=== PATIENT | male | born 1960 | race Caucasian/White ===

== ENCOUNTER 2021-04-16 08:47 | Emergency (ER) | payer OTHER, SELFPAY ==
[2021-04-16 08:48] VITALS: BP 142/84; PULSE 85; RESP 22; TEMP 36.6; O2SAT 99; BMI 31.8
--- NOTE | 2021-04-16 09:20 | EKG12_ITS ---
Test Reason : [facility] SVT Blood Pressure : / mmHG Vent. Rate : 084 BPM Atrial Rate : 084 BPM P-R Int : 156 ms QRS Dur : 088 ms QT Int : 362 ms P-R-T Axes : 054 007 061 degrees QTc Int : 427 ms Normal sinus rhythm Low voltage QRS (Limb Leads) Borderline ECG Confirmed by KAELA PURDY, CESAR ([id number]), brands editor ZACHARY ROCHA ([id number]) on 04/19/2021 11:40:33 AM Referred By: GISSELL Confirmed By:CESAR SHERWOOD MD
--- NOTE | 2021-04-16 09:25 | RAD_ITS ---
STUDY: X-RAY CHEST REASON FOR EXAM: Male, 61 years old. Chest pain TECHNIQUE: Single AP portable view of the chest. COMPARISON: None. FINDINGS: EKG electrodes are seen. Hyperinflation. The lungs are clear. There is no demonstrated pleural abnormality. Normal size heart. Normal mediastinum and juanis. Normal visualized pulmonary arteries. There is atherosclerotic tortuosity of the aortic arch and descending thoracic aorta. Normal visualized thoracic spine. Normal visualized ribs, clavicles, and shoulders. There is no demonstrated abnormality of the visualized soft tissue structures of the upper abdomen. RAD/Chest 1 View (Portable) IMPRESSION: Hyperinflation. The lungs are clear. Electronically Signed: Liu Clayton MD at 9:49 EDT , Service support ,
[2021-04-16 09:30] LABS: Absolute Lymphocyte Count 1.65 X10^3/uL (0.83-4.51); Absolute Neutrophil Count 3.6 X10^3/uL (2.0-7.7); Basophil# 0.03 X10^3/uL; Basophil% 0.5 % (0-1); Eosinophil# 0.26 X10^3/uL; Eosinophils% 4.3 % (0-5); Hematocrit 49.4 % (40-54); Hemoglobin 16.3 g/dL (13.0-16.5); Lymphocyte # 1.65 X10^3/ul (0.83-4.51); Lymphocyte % 27.5 % (19-41); Mean Corpuscular Hgb 30.4 pg (27.0-32.0); Mean Platelet Vol. 11.1 fl (6.2-12.0); Monocyte# 0.48 X10^3/uL; NRBC Flagged by Analyzer 0 % (0-5); Neutrophil # 3.55 X10^3/uL (2.7-7.7); Neutrophil % 59.2 % (47-70); Platelet Count 134 K/mm3 (150-450); RBC Distribution Width CV 12.9 % (11.6-14.6); RBC Distribution Width SD 43.8 fl (35.1-43.9); Red Blood Count 5.37 M/mm3 (4.6-6.2)
--- NOTE | 2021-04-16 09:32 | EDS_ITS ---
HPI History of Present Illness Chief Complaint: Palpitations Informant: patient and EMS Narrative Narrative: Patient is a 61-year-old male with history of bipolar disorder presenting with palpitations. Patient states around 720 this morning he was picking up delivery box not as any feeling his heart was racing. He states he felt weird. He checked his pulse at home on his home pulse oximeter and saw that it was between 150 and 167. It was worse when he stood up. He [place] associated chest pain. He called EMS and was brought to the emergency room. EMS did an EKG concerning for SVT and gave him 6 mg of IV adenosine and then 12 mg with conversion to NSR. Patient resolution of his symptoms after this. Patient currently has no complaints. He states he has otherwise been feeling well. He denies any history of arrhythmia or any cardiac history but does note that he had an ultrasound of his heart 10 years ago that said one of his valves did work well. He does not remember any further details. [facility] Medical History Bipolar 1 disorder Allergy/AdvReac Type Severity Reaction Status Date / Time No Known Allergies Allergy Verified 04/16/21 08:48 Social History Smoking Status: Former smoker ROS ROS ED Constitutional Constitutional ED: Denies fatigue or weakness Eyes Eyes: Denies blurry vision ENT ENT ED: Denies sore throat Cardiovascular Cardiovascular: Reports palpitations and racing heartbeat; Denies chest pain Respiratory/Chest Respiratory/Chest: Denies cough, dyspnea or dyspnea on exertion Gastrointestinal Gastrointestinal: Denies abdominal pain, nausea or vomiting Genitourinary Genitourinary ED: Denies decreased urination or dysuria Musculoskeletal Musculoskeletal: Denies extremity pain Integumentary Denies new lesions or rash Neurologic Neurologic: Denies paresthesias or weakness Psychiatric Psychiatric: Denies anxiety or depression Hematologic/Lymphatic Hematologic/Lymphatic: Denies easy bleeding or easy bruising EXAM Physical Exam Const Vital Signs: 04/16/21 08:48 04/16/21 09:42 04/16/21 10:13 Temperature 98 F Temperature Source Temporal Pulse Rate 85 91 Respiratory Rate 22 H 22 H Respiratory Effort Normal Non-Labored Respiratory Pattern Normal Blood Pressure 142/84 H 114/87 H Blood Pressure Mean 103 Pulse Ox 99 97 98 Oxygen Delivery Method Room Air Room Air Positive well nourished and well developed General Appearance ED: well developed HEENT Reports moist mucous membranes normocephalic Mouth ED: Yes moist mucous membranes normal Eyes PERRL and EOMs intact bilaterally General Eye ED: Yes normal appearance of both eyes Pupil: PERRL Neck supple and no JVD Lymph Lymphatic: no lymphadenopathy noted Chest Wall inspection of chest normal and palpation of chest normal Resp normal respiratory effort, normal air movement and clear to auscultation bilaterally Cardio regular rate and regular rhythm Peripheral Pulses: pulses 2+ throughout GI normal to inspection, nondistended, normoactive bowel sounds, non-tender and non-distended Back/Spine no CVA tenderness and normal to inspection Extremity normal to inspection and full ROM Neuro oriented x3, moves all extremities and no focal motor deficits Sensorium / Orientation: alert Motor Exam: Negative for general weakness Psych mental status grossly normal and thought process normal Skin no rashes or lesions noted and no petechiae MDM MDM MDM Narrative Medical decision making narrative: Patient evaluated after episode of palpitations which appears to have been SVT per EMS. Patient converted in route. Patient be discharged home after negative work-up in the ER including normal troponin, TSH, CBC and CMP. Chest x-ray shows hyperinflation with no other acute process. Patient is hemodynamically stable in the emergency room. He is instructed to follow-up with his PCP for further outpatient evaluation. Patient agreeable with this plan of care. Is discharged home in stable condit ion. He is counseled on vagal maneuvers. Lab Data Attestation: I reviewed the patient's lab results. Labs: Laboratory Results - last 24 hr 04/16/21 04/16/21 04/16/21 09:15 09:15 09:15 WBC 6.0 RBC 5.37 Hgb 16.3 Hct 49.4 MCV 92.0 MCH 30.4 MCHC 33.0 RDW Std Deviation 43.8 RDW Coeff of Criss 12.9 Plt Count 134 L MPV 11.1 Immature Gran % (Auto) 0.500 Neut % (Auto) 59.2 Lymph % (Auto) 27.5 [place] % (Auto) 8.0 Eos % (Auto) 4.3 Baso % (Auto) 0.5 Absolute Neuts (auto) 3.6 Absolute Lymphs (auto) 1.65 Nucleated RBC % 0 Sodium 140 Potassium 4.4 Chloride 108 H Carbon Dioxide 29.0 Anion Gap 3 L BUN 13 Creatinine 1.23 Estim Creat Clear Calc 71.27 Est GFR (MDRD) Af Amer 77 Est GFR (MDRD) Non-Af 64 BUN/Creatinine Ratio 10.6 Glucose 90 Calcium 8.9 Magnesium 2.1 Troponin I High Sens 7 TSH 1.31 Radiography Chest X-Ray - ED: 1 View, Read by ED Physician, Read by Radiologist and No Acute Disease Diagnostic Testing: Radiology Impression Chest X-Ray 04/16/21 09:25 IMPRESSION: Hyperinflation. The lungs are clear. Electronically Signed: Liu Clayton MD at 9:49 EDT , Service support , Rhythm Strip Rhythm Strip: Sinus Rhythm Rate: 84 Ectopy: None EKG Initial EKG: Attestation: I personally reviewed and interpreted this EKG as follows: Interpretation: Sinus Rhythm Comments: Normal sinus rhythm at a rate of 84 Normal axis Normal intervals Normal ST segments Low voltage QRS Discharge Plan Triage Chief Complaint: Palpitations ED Provider: Xiomara Bonner Dx/Rx/DC Orders Clinical Impression: SVT (supraventricular tachycardia) Instructions: ED Understanding Supraventricular Tachycardia (SVT) Referrals: Johana Pruett [Other] Disposition Disposition: Home, Self Care
[2021-04-16 09:42] VITALS: O2SAT 97
[2021-04-16 09:44] LABS: Anion Gap 3 (5-15); BUN 13 mg/dL (7-18); BUN/Creat Ratio 10.6 RATIO (10-20); Calcium,Total 8.9 mg/dL (8.5-10.1); Chloride 108 mmol/L (98-107); Creatinine, Serum 1.23 mg/dL (0.70-1.30); EST Glomerular Filtration Rate 64 mL/min (>60); Est Glom Filt Rate - Afr Amer 77 mL/min (>60); Estimated Creatinine Clearance 71.27 ml/min; Glucose 90 mg/dL (74-106); Potassium 4.4 mmol/L (3.5-5.1); Sodium Level 140 mmol/L (136-145); Troponin-I HS 7 pg/mL (3.0-78.0)
[2021-04-16 10:06] LABS: Magnesium 2.1 mg/dL (1.6-2.6); Thyroid Stim Hormone (TSH) 1.31 uIU/mL (0.358-3.74)
[2021-04-16 10:13] VITALS: BP 114/87; PULSE 91; RESP 22; O2SAT 98
[2021-04-16 10:49] VITALS: BP 114/87; PULSE 88; RESP 16; O2SAT 99
== END 2021-04-16 10:50 | disposition home or self-care (01) ==
PROVIDERS: Emergency Provider Emergency Medicine
DX: I47.1 Supraventricular tachycardia (principal); F31.9 Bipolar disorder, unspecified; Z87.891 Personal history of nicotine dependence
CPT/HCPCS: 71045; 80048; 83735; 84443; 84484; 85025; 93005; 99285

== ENCOUNTER 2025-03-24 15:53 | Emergency (ER) | payer BC, SELFPAY ==
[2025-03-24 15:54] VITALS: BP 131/82; PULSE 77; RESP 25; TEMP 36.7; O2SAT 100; BMI 31.5
--- NOTE | 2025-03-24 16:09 | EKG12_ITS ---
Test Reason : Blood Pressure : */* mmHG Vent. Rate : 76 BPM Atrial Rate : 76 BPM P-R Int : 168 ms QRS Dur : 98 ms QT Int : 406 ms P-R-T Axes : 66 -22 45 degrees QTcB Int : 456 ms Normal sinus rhythm Normal ECG Confirmed by Wilian Seymour ([id number]), photography editor ZACHARY ROCHA ([id number]) on 03/25/2025 11:00:30 AM Referred By: Confirmed By: Wilian Seymour
--- NOTE | 2025-03-24 16:15 | ED.VIS.CHEST ---
HPI History of Present Illness Chief Complaint: Palpitations Informant: patient Onset/Context/Timing Onset: Today Activity at onset: gradual Timing: Intermittent Worsened By: Nothing Relieved By: Nothing Narrative Narrative: 65-year-old new states has been having palpitations at times heart racing he feels trembling history of prior with a negative cardiac workup. Chest pains atypical nonexertional. No history of DVT or PE risk factors. No recent travel, surgery immobilization. No leg pain or swelling. No hemoptysis. No known thyroid history. No prior cardiac surgery. He had a negative stress test years ago. Prior Similar Symptoms: Yes Recent Illness/Hospitalization: No CVD Risk Factors: Negative for Hypertension, Diabetes, Hypercholesterolemia, Family History 1' </=55 or Smoking PE Risk Factors: Negative for Recent Travel/Surgery, Recent Immobilization, Prior DVT or PE or OCP + Smoking + >/=35 TAD Risk Factors: Negative for Marfan's Syndrome [facility] Medical History Bipolar 1 disorder Home Medications ?Medication ?Instructions ?Recorded ?Last Taken ?Type citalopram 10 mg tablet 10 mg PO DAILY 03/24/25 03/24/25 History Allergy/AdvReac Type Severity Reaction Status Date / Time No Known Allergies Allergy Verified 03/24/25 15:54 Social History Smoking Status: Former smoker ROS ROS ED ROS Narrative Palpitations. Constitutional Constitutional ED: Denies chills or fever(s) ENT ENT ED: Denies ear pain Cardiovascular Cardiovascular: Reports palpitations and racing heartbeat Respiratory/Chest Respiratory/Chest: Denies cough, dyspnea or dyspnea on exertion Gastrointestinal Gastrointestinal: Denies abdominal pain Genitourinary Genitourinary ED: Denies dysuria or hematuria Musculoskeletal Musculoskeletal: Denies arthralgias Integumentary Denies abscess Neurologic Neurologic: Denies headache(s) or paresthesias Psychiatric Psychiatric: Denies anxiety or depression Endocrine Endocrinology: Denies cold intolerance or heat intolerance Hematologic/Lymphatic Hematologic/Lymphatic: Denies easy bleeding, easy bruising or lymphadenopathy Allergic/Immunologic Allergic/Immunologic ED: Denies mouth swelling, tongue swelling or urticaria EXAM Physical Exam Narrative Exam Narrative: 65-year-old male vital signs stable afebrile no acute distress. Pulse ox 100% on room air. He appears comfortable in bed. With very stable normal vital signs. No distress. H EENT exam pupils round react light. Moist mucous membranes. Neck nontender. No JVD. No thyromegaly. Lungs clear to auscultation bilateral. Heart regular rhythm rate 70s no murmur. Chest wall nontender. Abdomen soft nontender. Moving all 4 extremities. 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 Equal symmetrical radial pulses. Calves are nontender without edema or cords. Back nontender. Neurologic exam he is awake and alert. Answering questions following commands. No focal motor deficits. Const Vital Signs: 03/24/25 15:54 03/24/25 15:59 03/24/25 16:15 Temperature 98.1 F Temperature Source Oral Pulse Rate 77 Respiratory Rate 25 H Respiratory Effort Normal Non-Labored Blood Pressure 131/82 H Blood Pressure Mean 98 Pulse Ox 100 Oxygen Delivery Method Room Air Room Air 03/24/25 16:53 03/24/25 17:00 Temperature Temperature Source Pulse Rate 63 70 Respiratory Rate 17 17 Respiratory Effort Blood Pressure 133/87 H Blood Pressure Mean 102 Pulse Ox 94 95 Oxygen Delivery Method Room Air Room Air Positive well nourished and well developed; Negative for cachectic, contractures or unkempt General Appearance ED: well developed and NAD; Negative for unkempt, cachectic, contractures or pallor Nutritional Appearance: Negative for cachectic HEENT Reports moist mucous membranes normocephalic and atraumatic Eyes PERRL and EOMs intact bilaterally Neck no lymphadenopathy, supple and no JVD Chest Wall inspection of chest normal and palpation of chest normal Resp normal respiratory effort and clear to auscultation bilaterally Cardio regular rate, regular rhythm, S1 normal heart sound, S2 normal heart sound and no murmurs Peripheral Pulses: pulses 2+ throughout GI normal to inspection, nondistended, normoactive bowel sounds, soft to palpation, non-tender, non-distended and no masses Back/Spine no CVA tenderness and no thoracic nor lumbar tenderness Extremity normal to inspection General Extremety ED: Negative for edema, pulses abnormal or tenderness General Extremity: Negative for edema or pulses abnormal Neuro oriented x3 and CN's II-XII intact bilaterally Sensorium / Orientation: awake, alert, oriented to person, oriented to place and oriented to time; Negative for confused, lethargic or stuporous Motor Exam: strength 5/5 throughout Psych mental status grossly normal Appearance: Negative for unkempt Skin no rashes or lesions noted and no wounds General Skin Exam: Negative for jaundice or pallor Rashes: No rashes noted Trauma: Negative for abrasion, laceration or puncture Heart Score History: Slightly/Non-Suspicious ECG: Normal Age: >/= 65 years Risk Factors: No Risk Factors Troponin: </= Normal Limit Score: 2 MDM MDM MDM Narrative Medical decision making narrative: 65-year-old male with palpitations and trembling. Atypical nonexertional chest discomfort. Undergoing cardiac workup. His exam currently is normal. Differential includes dysrhythmia, thyroid disease, IN versus other etiologies. Repeat exam at 6 PM patient is doing well. He says he feels much better. His vital signs are currently stable his heart rates in the 70s. He is having no symptoms. He has not had any since he has been here. I explained to him and his test are basically unremarkable. He did not want a wait for 2-hour troponin clinically I do not think he had a heart attack. He will be discharged home with outpatient follow-up for palpitations uncertain etiology. History & Record Review Discussion w/independent historian: Patient Additional record(s) reviewed:: Prior inpatient record, Prior outpatient record, Prior ED visit and Prior labs Lab Data Attestation: I reviewed the patient's lab results. Lab results narrative: CBC unremarkable white count of 7 H&H of 16 and 48. Platelets 155. Electrolytes show a gap of 14. BUN and creatinine 71.41. Glucose 108. Initial troponin 11. TSH is 1.3. Labs: Laboratory Results - last 24 hr 03/24/25 16:00 WBC 7.5 RBC 5.49 Hgb 16.8 H Hct 48.8 MCV 88.9 MCH 30.6 MCHC 34.4 RDW Std Deviation 41.9 RDW Coeff of Criss 12.8 Plt Count 155 MPV 11.8 Immature Gran % (Auto) 0.400 Neut % (Auto) 64.5 Lymph % (Auto) 23.4 [place] % (Auto) 8.5 Eos % (Auto) 2.5 Baso % (Auto) 0.7 Absolute Neuts (auto) 4.8 Absolute Lymphs (auto) 1.76 Nucleated RBC % 0 Sodium 139 Potassium 4.1 Chloride 103 Carbon Dioxide 21.5 Anion Gap 14 BUN 17 Creatinine 1.41 H Estim Creat Clear Calc 67.45 Est GFR (MDRD) Non-Af 55 L BUN/Creatinine Ratio 11.7 Glucose 108 H Calcium 10.3 Troponin T High Sens 11 TSH 1.330 Radiography Chest X-Ray - ED: 2 View, Read by ED Physician, Normal, Heart, Lungs, Mediastinum, Bony Structures, No Acute Disease and Chronic Changes Diagnostic Testing: Clinical Impression(s) from Imaging Studies Chest X-Ray 03/24/25 16:25 IMPRESSION: No acute cardiopulmonary disease. Reading Location: [facility] Chest x-ray, portable, 2 views interpreted by myself and radiologist shows no acute abnormality. Normal cardiac silhouette. No pneumonia. No effusions. Normal lung moseley. Chronic changes. Rhythm Strip Rhythm Strip: Sinus Rhythm Rate: 76 Ectopy: None EKG Initial EKG: Attestation: I personally reviewed and interpreted this EKG as follows: Interpretation: Sinus Rhythm and No Acute Injury Pattern Comments: Normal sinus rhythm rate of 76 no acute signs of IN or ischemia. No dysrhythmia. Discharge Plan Triage Chief Complaint: Palpitations ED Provider: Nic Mijares Dx/Rx/DC Orders Clinical Impression: Heart palpitations, Atypical chest pain Instructions: ED Heart Palpitations Prescriptions: No Action citalopram 10 mg tablet 10 mg PO DAILY Primary Care Provider: Johana Pruett Referrals: Johana Pruett [Other] - 1 Week Activity Restrictions/Additional Instructions: Your test today, chest x-ray, EKG and labs were all unremarkable. Follow-up with your doctor if you have continued palpitations. Return if you are feeling worse. Print Language: Korean Disposition Disposition: Home, Self Care
[2025-03-24 16:18] LABS: Hematocrit 48.8 % (40-54); Hemoglobin 16.8 g/dL (13.0-16.5); Immature Granulocytes Count 0.030 X10^3/uL (0.0-0.0); Mean Corp Hgb Conc 34.4 g/dL (32-36); Mean Corpuscular Volume 88.9 fL (80-94); Mean Platelet Vol. 11.8 fl (6.2-12.0); NRBC Flagged by Analyzer 0 % (0-5); Platelet Count 155 K/mm3 (150-450); RBC Distribution Width CV 12.8 % (11.6-14.6); RBC Distribution Width SD 41.9 fl (35.1-43.9); Red Blood Count 5.49 M/mm3 (4.6-6.2); White Blood Count 7.5 K/mm3 (4.4-11.0)
--- NOTE | 2025-03-24 16:25 | RAD_ITS ---
PROCEDURE: CHEST PA AND LATERAL 03/24/2025 REASON FOR EXAM: CHEST PAIN TECHNIQUE: Procedure Code: RADCXR Modality: DX Procedure: CHEST PA AND LATERAL COMPARISON: 04/16/2021 FINDINGS: Lungs/Pleura: Clear. No pneumothorax or pleural effusion. Heart/Mediastinum: Normal in size. No vascular congestion. Bones/Soft tissues: Mild degenerative changes of the thoracic spine. RAD/Chest PA and Lateral IMPRESSION: No acute cardiopulmonary disease. Reading Location: [id number]
--- OUTSIDE RECORDS SUMMARY | 2025-03-24 16:42 | XMS RPT_ITS | CCD ---
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 Name Role Phone Ben Pruett MD Primary Care Provider [phone] BEN PRUETT Referring Unavailable BEN PRUETT Primary Care Unavailable BEN PRUETT Referring Unavailable BEN PRUETT Primary Care Unavailable Ben Pruett MD Primary Care Provider [phone] Ben Pruett MD Primary Care Provider [phone] Jazmyn Clark APRN.CNP Unavailable [phone] Yoli Gonzalez PA-C Unavailable BEN PRUETT Attending Unavailable BEN PRUETT Primary Care Unavailable BEN PRUETT Primary Care Unavailable TONYA ALVARADO Attending Unavailable Medications Current Medications Medication Drug Class(es) Dates Sig (Normalized) Sig (Original) amoxicillin 875 mg / clavulanate 125 mg oral tablet (1 source) Penicillin-class Antibacterial Start: 3 End: 3 take 1 tablet by mouth twice daily amoxicillin-clavulani c acid (AUGMENTIN) 875-125 mg per tablet Indications: Acute non-recurrent maxillary sinusitis Take 1 tablet by mouth twice daily for 5 days. 10 tablet 0 07/27/2022 08/01/2022 Active Comment on above: Take 1 tablet by yamilka twice daily for 5 days. citalopram 10 mg oral tablet (19 sources) Serotonin Reuptake Inhibitor Start: 2 End: 5 take 1 tablet by mouth once daily citalopram hydrobromide (CELEXA) 10 mg tablet Indications: SENTHIL (generalized anxiety disorder) Take 1 tablet by mouth once daily. 90 tablet 3 09/30/2024 Active Comment on above: Take 1 tablet by yamilka once daily. cyclobenzaprine hydrochloride 10 mg oral tablet (1 source) Muscle Relaxant Start: End: take 1 tablet by mouth every eight hours as needed cyclobenzaprine (FLEXERIL) 10 mg tablet Indications: Acute right-sided low back pain, unspecified whether sciatica present Take 1 tablet by mouth every 8 hours as needed for up to 5 days. 10 tablet 11/25/2024 11/30/2024 Active methylPREDNISolone (1 source) Corticosteroid Start: End: methylPREDNISolone (MEDROL DOSE-PACK) 4 mg Dose-Pack Indications: Acute right-sided low back pain, unspecified whether sciatica present , Acute pain of right knee Take as instructed per package. 21 tablet 11/25/2024 12/01/2024 Active Completed/Discontinued Medications Medication Drug Class(es) Dates Sig (Normalized) Sig (Original) nepafenac 1 mg/ml ophthalmic suspension (2 sources) Nonsteroidal Anti-inflammatory Drug Start: 07-02-2019 End: 07-27-2022 take 1 drop(s) into the eye(s) three times daily nepafenac ophthalmic (NEVANAC) 0.1 % ophthalmic suspension One drop 3 times a day in surgical eye. 1 Bottle 1 07/02/2019 07/27/2022 Discontinued (Course of therapy completed) Comment on above: One drop 3 times a d ay in surgical eye. prednisoLONE acetate 10 mg/ml ophthalmic suspension (2 sources) Corticosteroid Start: 07-02-2019 End: 07-27-2022 prednisoLONE acetate (PRED FORTE) 1 % ophthalmic suspension One drop 4 times a day in surgical eye. 10 mL 1 07/02/2019 07/27/2022 Discontinued (Course of therapy completed) Comment on above: One drop 4 times a d ay in surgical eye. Problems Active Problems Problem Classification Problem Date Documented Da te Episodic/Chronic Anxiety disorders (8 sources) Generalized anxiety disorder; Translations: [Generalized anxiety disorder] Chronic Gastrointestinal hemorrhage (1 source) Gastrointestinal hemorrhage; Translations: [Hemorrhage of anus and rectum] 10-31-2023 Episodic Immunizations and screening for infectious disease (6 sources) Patient encounter status; Translations: [Encounter for screening for human immunodeficiency virus [HIV]] Onset: 3 Episodic Nutritional deficiencies (1 source) Vitamin D deficiency, unspecified; Translations: [Vitamin D deficiency] Onset: 3 Chronic Other non-traumatic joint disorders (2 sources) Pain in right knee; Translations: [Pain in joint, lower leg] Onset: 5 11-25-2024 Episodic Other nutritional; endocrine; and metabolic disorders (12 sources) Obese class I; Translations: [Obesity, unspecified] Onset: 9 04-18-2019 Chronic Other upper respiratory infections (1 source) Acute maxillary sinusitis; Translations: [Acute maxillary sinusitis, unspecified] Episodic Screening and history of mental health and substance abuse codes (12 sources) Ex-smoker; Translations: [Personal history of nicotine dependence] 04-18-2019 Episodic Spondylosis; intervertebral disc disorders; other back problems (1 source) Acute low back pain; Translations: [Acute right-sided low back pain, unspecified whether sciatica present] 11-25-2024 Episodic Unclassified (1 source) Acute right-sided low back pain, unspecified whether sciatica present; Translations: [Acute right-sided low back pain, unspecified whether sciatica present] Onset: 5 Past or Other Problems Problem Classification Problem Date Documented Da te Episodic/Chronic Other gastrointestinal disorders (7 sources) Stool DNA-based colorectal cancer screening positive; Translations: [Other fecal abnormalities] Onset: 12-08-2022 12-08-2022 Episodic Superficial injury; contusion (5 sources) Contusion of elbow; Translations: [Contusion of unspecified elbow, initial encounter] Onset: 08-13-2008 Resolved: 04-18-2019 04-18-2019 Episodic Results Test Name Value Interpretation Reference Range Facility OVon 11-25-2024 CNOV Office Visit ([facility] ) AMANDA WILLAMS ([id number]) 1960 M Date Time Provider Department 11/25/24 4:35 PM TONYA ALVARADO During your visit today, we recorded the following information about you: Temperature Pulse Blood pressure Weight 97.7 degrees 93/minute 103/70 111.6 kg Tonya Alvarado APRN.CNP 11/25/2024 5:01 PM Signed PATIENT NAME: Amanda Willams DATE OF : 1960 TODAYS' DATE: 11/25/2024 Recording using ambient [id number] software for draft documentation of the visit was discussed with the patient/authorized international account representative; all questions welcomed and answered. Patient/authorized international account representative agreed to proceed Subjective: The patient is a 64-year-old male presenting with knee and back pain. History of Present Illness: Knee and Back Pain: - Predominantly knee pain, with some back involvement. - Described as sharp and throbbing. - Initially intermittent, now fairly consistent. - Onset approximately one month ago. - Uncertain if pain radiates up or down the leg. - Denies known trauma or previous injury to the affected areas. - No associated urinary symptoms, loss of bowel or bladder control, or fever. - Ambulation is generally okay, but reports a limp when pain peaks. - Pain occurs both when bearing weight and when changing positions while sitting. - Recently started using Biofreeze and taking ibuprofen for pain management. Review of Systems: Constitutional: (-) fever Gastrointestinal: (-) bowel incontinence Genitourinary: (-) urinary symptoms, (-) bladder incontinence Musculoskeletal: (+) knee pain (sharp, throbbing), (+) back pain (sharp, throbbing), (-) stumbling Allergies: Allergies: No Known Allergies Past Medical History: PAST MEDICAL HISTORY Diagnosis Date Former smoker HEMATOMA ELBOW 08/13/2008 Myopia Obesity, Class I, BMI 30-34.9 04/18/2019 Past Surgical History: PAST SURGICAL HISTORY Procedure Laterality Date REFRACTIVE LENS EXCHANGE Bilateral 07/22/2019 VASECTOMY UNI/BI SPX W/POSTOP SEMEN EXAMS Family History: FAMILY HISTORY Problem Relation Age of Onset No Ocular Disease Father Hyperlipidemia Father Hyperlipidemia Mother Glaucoma Mother Cataract Mother Hyperlipidemia Sister Stroke Maternal Grandmother late 70's/early 80's Heart Attack Maternal Grandfather late 80's Emphysema Paternal Grandfather Hyperlipidemia Sister Tobacco History: Tobacco Use: Types: Cigarettes Medications: Current Outpatient Medications Medication Sig Dispense Refill citalopram hydrobromide (CELEXA) 10 mg tablet Take 1 tablet by mouth once daily. 90 tablet 3 methylPREDNISolone (MEDROL DOSE-PACK) 4 mg Dose-Pack Take as instructed per package. 21 tablet 0 cyclobenzaprine (FLEXERIL) 10 mg tablet Take 1 tablet by mouth every 8 hours as needed for up to 5 days. 10 tablet 0 No current facility-administered medications for this visit. Vitals: BP 103/70 Pulse 93 Temp 36.5 ?C (97.7 ?F) Wt 111.6 kg (246 lb) SpO2 98% BMI 32.46 kg/m? Physical Exam: Physical Exam Vitals reviewed. Constitutional: General: He is not in acute distress. Appearance: He is not ill-appearing, toxic-appearing or diaphoretic. Cardiovascular: Rate and Rhythm: Normal rate and regular rhythm. Pulmonary: Effort: Pulmonary effort is normal. Musculoskeletal: Lumbar back: Normal. Right knee: Bony tenderness present. No swelling or erythema. Tenderness present over the LCL. Neurological: Mental Status: He is alert. Psychiatric: Behavior: Behavior is cooperative. ASSESSMENT/PLAN: (M54.50) Acute right-sided low back pain, unspecified whether sciatica present (primary encounter diagnosis) Plan: methylPREDNISolone (MEDROL DOSE-PACK) 4 mg Dose-Pack, cyclobenzaprine (FLEXERIL) 10 mg tablet (M25.561) Acute pain of right knee Plan: methylPREDNISolone (MEDROL DOSE-PACK) 4 mg Dose-Pack -Ice/heat in rotation in 20 minute intervals. -Do not drive or operate heavy machinery with muscle relaxer -Stretching exercises to maintain ROM while using muscle relaxer. -Steroids to be taken with food. No NSAIDs, like ibuprofen or Aleve, while taking steroids. May use tylenol OTC for comfort. -If no improvement please be re-seen in 3-5 days with primary care. -Be seen immediately with worsening symptoms or red flag symptoms. -Warning symptoms/red flag symptoms: loss of bowel/bladder, fevers, inability to ambulate, chest pain, difficulty breathing, and numbness/tingling. - See patient instructions for further recommendations. - Pt education along with discharge instructions given to pt - Discussed Red Flag signs and when to go to ER. - Pt agreeable with plan and verbalizes understanding. - Follow up with PCP if symptoms worsen or do not improve in the next 2-3 days. Tonya Alvarado APRN.ELECTRICIAN SUPERVISOR AIRPLANE 4:43 PM 11/25/24 Disposition The patient was discharged. OTC Medications were a (more content not included)... [facility] CNOVon 09-30-2024 CNOV Office Visit ([facility] ) AMANDA WILLAMS ([id number]) 1960 M Date Time Provider Department 09/30/24 11:15 AM BEN PRUETT [facility] During your visit today, we recorded the following information about you: Pulse Blood pressure Weight Height 80/minute 124/84 110 kg 1.854 m Ben Pruett MD 09/30/2024 4:57 PM Signed Subjective HPI Patient here for follow-up, history of generalized anxiety. She has been on citalopram, overall this has been very good for his general anxiety as well as agitation. Sleep undisturbed. No reason to change or alter his current treatment regimen. Review of Systems Respiratory: Negative for cough, hemoptysis and sputum production. Cardiovascular: Negative for chest pain, palpitations and orthopnea. Objective Physical Exam Cardiovascular: Rate and Rhythm: Normal rate and regular rhythm. Pulses: Normal pulses. Heart sounds: Normal heart sounds. Pulmonary: Effort: Pulmonary effort is normal. Breath sounds: Normal breath sounds. ASSESSMENT/PLAN: 1. SENTHIL (generalized anxiety disorder) - ICD9: 300.02, ICD10: F41.1 (primary diagnosis) - CITALOPRAM 10 MG TABLET 2. Healthcare maintenance - ICD9: V70.0, ICD10: Z00.00 - HEMOGLOBIN A1C - COMPREHENSIVE METABOLIC PANEL - LIPID PANEL BASIC - ALBUMIN/CREATININE RATIO, URINE - COMPLETE BLOOD COUNT AND DIFFERENTIAL - URINALYSIS, REFLEX MICROSCOPIC 3. Prostate cancer screening - ICD9: V76.44, ICD10: Z12.5 - PSA/PROSTATE SPECIFIC ANTIGEN SCREENING Bne Pruett MD Allergies As of Date: 09/30/2024 (No Known Allergies) Date Reviewed: 09/30/2024 Reviewed by: Maria Eugenia Louis MA - Fully Assessed Reason for Visit: Physical [83] Primary Visit Diagnosis:SENTHIL (generalized anxiety disorder) [F41.1] Other Visit Diagnoses:Healthcare maintenance [Z00.00] Prostate cancer screening [Z12.5] Order(s):citalopram hydrobromide (CELEXA) 10 mg tabletTake 1 tablet by mouth once daily.Disp: 90 tabletRfl: 3 HEMOGLOBIN A1C [SOSNT5U] Order #: [id number] FUTURE COMPREHENSIVE METABOLIC PANEL [SQCMP] Order #: [id number] FUTURE LIPID PANEL BASIC [SQLIPB] Order #: [id number] FUTURE ALBUMIN/CREATININE RATIO, URINE [SQUACR] Order #: [id number] FUTURE COMPLETE BLOOD COUNT AND DIFFERENTIAL [SQCBCDIF] Order #: [id number] FUTURE URINALYSIS, REFLEX MICROSCOPIC [VIC1616] Order #: [id number] FUTURE PSA/PROSTATE SPECIFIC ANTIGEN SCREENING [SQPSAS1] Order #: [id number] FUTURE Prescriptions as of 10/01/2024 - citalopram hydrobromide (CELEXA) 10 mg tablet Take 1 tablet by mouth once daily. Problem List As Of Date 09/30/2024 Noted Resolved HEMATOMA ELBOW [S50.00XA] 08/13/2008 04/18/2019 Obesity, Class I, BMI 30-34.9 [E66.811] 04/18/2019 Former smoker [Z87.891] Positive colorectal cancer screening using Moorcroft*12/08/2022 Prescriptions ordered this encounter Disp Refills Start End CITALOPRAM 10 MG TABLET 90 t* 3 09/30/2024 Route: ORAL Sig: Take 1 tablet by mouth once daily. Medications Discontinued During This Encounter Prescriptions - citalopram hydrobromide (CELEXA) 10 mg tablet (Discontinued) Take 1 tablet by mouth once daily. Level of Service: OFFICE/OUTPATIENT ESTABLISHED LOW MDM 20 MIN [56865] Additional E/M codes: VISIT CPLX INHERENT EANDM ASSOC WITH MED * Encounter Status:Closed [facility] CNPNon 09-09-2024 CNPN Telephone ([facility]) AMANDA WILLAMS ([id number]) 1960 M Date Time Provider Department 09/09/24 SONIBEN ARNOLD [facility] During your visit today, we recorded the following information about you: Maria Eugenia Louis MA 09/09/2024 3:04 PM Signed Received refill request. Patient not seen since October 2023 Please contact the patient to schedule an appointment. Appointment specifications include: WHY does the patient need to be seen? Yearly Exam WHO should the patient schedule the appointment with? Physician only WHAT specific type of appointment is needed? Physical WHEN should the patient be seen? First available appointment WHERE should the patient be seen? In Office [facility] 09/18/2024 10:53 AM Signed 1st attempt at calling patient, did LVM. Last log into [employer] was October of 2023- did not send a [employer] message. Will postpone to ensure another attempt is made. [facility]ada September 18, 2024 10:53 AM Briana Singh 09/20/2024 11:07 AM Signed 2nd attempt at calling patient, did LVM on home phone and mobile phone. Last log into [employer] was October of 2023- did send a [employer] message and letter. At this time closing encounter. Briana Singh September 20, 2024 11:06 AM Allergies As of Date: 09/09/2024 (No Known Allergies) Date Reviewed: 10/31/2023 Reviewed by: Mesha Reno MA - Fully Assessed Reason for Visit: Appointment [186] Prescriptions as of 09/20/2024 - citalopram hydrobromide (CELEXA) 10 mg tablet Take 1 tablet by mouth once daily. Problem List As Of Date 09/09/2024 Noted Resolved HEMATOMA ELBOW [S50.00XA] 08/13/2008 04/18/2019 Obesity, Class I, BMI 30-34.9 [E66.811] 04/18/2019 Former smoker [Z87.891] Positive colorectal cancer screening using [place]croft*12/08/2022 Encounter Status:Closed by ROCK MONCADA on 09/18/24 [facility] HCV Ab Ser Qlon 10-03-2022 HCV Ab Ql (S) Non-Reactive Normal Nonreactive [facility] Comment on above: Order Comment: Speci men Type: BLOOD SPECIMEN Ordering Facility: [facility] Address: [address] [place], [place] [id number] Result Comment: The result suggests no evidence of active infection with Hepatitis C virus. Should recent infection be suspected, repeat testing may be considered 4-6 weeks after this draw. Performed By: #### 1 6128-1, 34994-4 #### [facility] CLIA [id number] [address] OF [facility] HIV 1+2 Ab IA Qlon 3 HIV 1 and 2 Ab IA.rapid Nom Normal [facility] Comment on above: Order Comment: Speci [facility] Type: BLOOD SPECIMEN Ordering Facility: [facility] Address: [address] [place], [place] [phone] Result Comment: Test not indicated. Performed By: #### 1 6128-1, 83827-3 #### [facility] CLIA [id number] [address] OF [facility] HIV 1+2 Ab+HIV1 p24 Ag IA Ql Non-Reactive Normal Nonreactive [facility] Comment on above: Order Comment: Speci men Type: BLOOD SPECIMEN Ordering Facility: [facility] Address: [address] [place], [place] [address] Result Comment: [place] Rev. Code 3701.243(E): This information has been disclosed to you from confidential records protected from disclosure by state law. ???You shall make no further disclosure of this information without the specific, written, and informed release of the individual to whom it pertains or as otherwise permitted by state law. A general authorization for the release of medical or other information is not sufficient for the purpose of the release of HIV test results or diagnoses. Test methodology for this assay has moved from Siemens Centaur XP to Colin lyndsey 8000 effective April 26, 2022. Please note there may be a change in the reporting units and/or reference range. Performed By: #### 1 6128-1, 44651-8 #### [facility] CLIA [id number] [address] HIVINT Normal [facility] Comment on above: Order Comment: Speci men Type: BLOOD SPECIMEN Ordering Facility: [facility] Address: [address] [place] [address] Result Comment: No e vidence of HIV-1 or HIV-2 infection. Should recent infection be suspected, repeat testing may be considered 2-3 weeks after this draw. Performed By: #### 1 6128-1, 70347-4 #### [facility] CLIA [id number] [address] 25(OH)D3 SerPl-mCncon 2022 25-hydroxyvitamin D3 [Mass/Vol] 33.1 ng/mL Normal >=30.0 [facility] Comment on above: Order Comment: Speci men Type: BLOOD SPECIMEN Ordering Facility: [facility] Address: [address] [place] [address] Result Comment: Clas sification of 25 [place] Vitamin D status: Deficiency: <= 20.0 ng/ml. Insufficiency: 21.0-29.0 ng/ml. Sufficiency: >= 30.0 ng/ml. Performed By: #### 1 989-3 #### [facility] CLIA [id number] [address] CBC W Auto Differential pane l (Bld)on 09-21-2022 Basophils (Bld) [#/Vol] 0.04 10*3/uL Normal <0.11 [facility] Comment on above: Order Comment: Speci men Type: BLOOD SPECIMEN Ordering Facility: [facility] Address: [address] [place] [address] Performed By: #### 5 7021-8 #### [facility] CLIA [id number] [address] [place], [place] [address] [place] [address] [place] Basophils/100 WBC (Bld) 0.7 % Normal [facility] Comment on above: Order Comment: Speci men Type: BLOOD SPECIMEN Ordering Facility: [facility] Address: [address] [place] [address] Performed By: #### 5 7021-8 #### [facility] CLIA [id number] [address] [place] [address] [place] Differential cell count method Nom (Bld) Auto Normal [facility] Comment on above: Order Comment: Speci men Type: BLOOD SPECIMEN Ordering Facility: [facility] Address: [address] [place] [address] Performed By: #### 5 7021-8 #### [facility] CLIA [id number] [address] [place] [address] [place] Eosinophils (Bld) [#/Vol] 0.27 10*3/uL Normal <0.46 [facility] Comment on above: Order Comment: Speci men Type: BLOOD SPECIMEN Ordering Facility: [facility] Address: [address] [place] [address] Performed By: #### 5 7021-8 #### [facility] CLIA [id number] [address] [place] Eosinophils/100 WBC (Bld) 4.6 % Normal [facility] Comment on above: Order Comment: Speci men Type: BLOOD SPECIMEN Ordering Facility: [facility] Address: [address] [place] [address] Performed By: #### 5 7021-8 #### [facility] CLIA [id number] [address] [place] Erythrocyte distribution width (RBC) [Ratio] 12.7 % Normal 11.5-15.0 [facility] Comment on above: Order Comment: Speci men Type: BLOOD SPECIMEN Ordering Facility: [facility] Address: [address] [place] [address] Performed By: #### 5 7021-8 #### [facility] CLIA [id number] [address] [place] [address] [place] Hematocrit (Bld) [Volume fraction] 48.6 % Normal 39.0-51.0 [facility] Comment on above: Order Comment: Speci men Type: BLOOD SPECIMEN Ordering Facility: [facility] Address: [address] [place] [address] Performed By: #### 5 7021-8 #### [facility] CLIA [id number] [address] [place] [address] [place] Hemoglobin (Bld) [Mass/Vol] 16.2 g/dL Normal 13.0-17.0 [facility] Comment on above: Order Comment: Speci men Type: BLOOD SPECIMEN Ordering Facility: [facility] Address: [address] [place] [address] Performed By: #### 5 7021-8 #### [facility] CLIA [id number] [address] [place] [address] [place] Immature granulocytes (Bld) [#/Vol] 10*3/uL Normal <0.10 [facility] Comment on above: Order Comment: Speci men Type: BLOOD SPECIMEN Ordering Facility: [facility] Address: [address] [place] [address] Performed By: #### 5 7021-8 #### [facility] CLIA [id number] [address] [place] [address] [place] Immature granulocytes/100 WBC (Bld) 0.2 % Normal [facility] Comment on above: Order Comment: Speci men Type: BLOOD SPECIMEN Ordering Facility: [facility] Address: [address] [place] [address] Performed By: #### 5 7021-8 #### [facility] CLIA [id number] [address] [place] [address] [place] Lymphocytes (Bld) [#/Vol] 1.65 10*3/uL Normal 1.00-4.00 [facility] Comment on above: Order Comment: Speci men Type: BLOOD SPECIMEN Ordering Facility: [facility] Address: [address] [place] [address] Performed By: #### 5 7021-8 #### [facility] CLIA [id number] [address] [place] [address] Lymphocytes/100 WBC (Bld) 28.2 % Normal [facility] Comment on above: Order Comment: Speci men Type: BLOOD SPECIMEN Ordering Facility: [facility] Address: [address] [place] [address] Performed By: #### 5 7021-8 #### [facility] CLIA [id number] [address] [place] [address] [place] MCH (RBC) [Entitic mass] 30.8 pg Normal 26.0-34.0 [facility] Comment on above: Order Comment: Speci men Type: BLOOD SPECIMEN Ordering Facility: [facility] Address: [address] [place] [address] Performed By: #### 5 7021-8 #### [facility] CLIA [id number] [address] [place] [address] [place] [facility] MCHC (RBC) [Mass/Vol] 33.3 g/dL Normal 30.5-36.0 [facility] Comment on above: Order Comment: Speci men Type: BLOOD SPECIMEN Ordering Facility: [facility] Address: [address] [place] [address] Performed By: #### 5 7021-8 #### [facility] CLIA [id number] [address] [place] MCV (RBC) [Entitic vol] 92.4 fL Normal 80.0-100.0 [facility] Comment on above: Order Comment: Speci men Type: BLOOD SPECIMEN Ordering Facility: [facility] Address: [address] [place] [address] Performed By: #### 5 7021-8 #### [facility] CLIA [id number] [address] [place] [address] [place] Monocytes (Bld) [#/Vol] 0.44 10*3/uL Normal <0.87 [facility] [facility] Comment on above: Order Comment: Speci men Type: BLOOD SPECIMEN Ordering Facility: [facility] Address: [address] [place] [address] Performed By: #### 5 7021-8 #### [facility] CLIA [id number] [address] [place] [address] [place] Monocytes/100 WBC (Bld) 7.5 % Normal [facility] Comment on above: Order Comment: Speci men Type: BLOOD SPECIMEN Ordering Facility: [facility] Address: [address] [place] [address] Performed By: #### 5 7021-8 #### [facility] CLIA [id number] [address] [place] [address] [place] Neutrophils (Bld) [#/Vol] 3.44 10*3/uL Normal 1.45-7.50 [facility] Comment on above: Order Comment: Speci men Type: BLOOD SPECIMEN Ordering Facility: [facility] Address: [address] [place] [address] Performed By: #### 5 7021-8 #### [facility] CLIA [id number] [address] [place] [address] [place] Neutrophils/100 WBC (Bld) 58.8 % Normal [facility] Comment on above: Order Comment: Speci men Type: BLOOD SPECIMEN Ordering Facility: [facility] Address: [address] [place] [address] Performed By: #### 5 7021-8 #### [facility] CLIA [id number] [address] [place] [address] [place] Nucleated RBC (Bld) [#/Vol] Normal [facility] Comment on above: Order Comment: Speci men Type: BLOOD SPECIMEN Ordering Facility: [facility] Address: [address] [place] [address] Performed By: #### 5 7021-8 #### [facility] CLIA [id number] [address] [place] [address] [place] Nucleated RBC/100 WBC (Bld) [Ratio] Normal [facility] Comment on above: Order Comment: Speci men Type: BLOOD SPECIMEN Ordering Facility: [facility] Address: [address] [place] [address] Performed By: #### 5 7021-8 #### [facility] CLIA [id number] [address] [place] [address] [place] Platelet mean volume (Bld) [Entitic vol] 11.6 fL Normal 9.0-12.7 [facility] Comment on above: Order Comment: Speci men Type: BLOOD SPECIMEN Ordering Facility: [facility] Address: [address] [place] [address] Performed By: #### 5 7021-8 #### [facility] CLIA [id number] [address] [place] [address] [place] Platelets (Bld) [#/Vol] 140 10*3/uL Low 150-400 [facility] Comment on above: Order Comment: Speci men Type: BLOOD SPECIMEN Ordering Facility: [facility] Address: [address] [place] [address] Performed By: #### 5 7021-8 #### [facility] CLIA [id number] [address] [place] [address] [place] RBC (Bld) [#/Vol] 5.26 10*6/uL Normal 4.20-6.00 [facility] Comment on above: Order Comment: Speci men Type: BLOOD SPECIMEN Ordering Facility: [facility] Address: [address] [place] [address] Performed By: #### 5 7021-8 #### [facility] CLIA [id number] [address] [place] [address] [place] WBC (Bld) [#/Vol] 5.85 10*3/uL Normal 3.70-11.00 [facility] Comment on above: Order Comment: Speci men Type: BLOOD SPECIMEN Ordering Facility: [facility] Address: [address] [place] [address] Performed By: #### 5 7021-8 #### [facility] CLIA [id number] [address] [place] [address] [facility] Comprehensive metabolic 2000 panelon 09-21-2022 Albumin [Mass/Vol] 4.4 g/dL Normal 3.9-4.9 [facility] Comment on above: Order Comment: Speci men Type: BLOOD SPECIMEN Ordering Facility: [facility] Address: [address] [place] [address] Performed By: #### 2 4323-8, 28920-2 #### [facility] CLIA [id number] [address] [place] ALP [Catalytic activity/Vol] 55 U/L Normal 38-113 [facility] Comment on above: Order Comment: Speci men Type: BLOOD SPECIMEN Ordering Facility: [facility] Address: [address] [place] [address] Performed By: #### 2 4323-8, 31231-9 #### [facility] CLIA [id number] [address] [place] [address] [facility] ALT With P-5'-P [Catalytic activity/Vol] 64 U/L High 10-54 [facility] Comment on above: Order Comment: Speci men Type: BLOOD SPECIMEN Ordering Facility: [facility] Address: [address] [place] [address] Performed By: #### 2 4323-8, 10775-2 #### [facility] CLIA [id number] [address] [place] [address] [facility] Anion gap [Moles/Vol] 7 mmol/L Low 9-18 [facility] Comment on above: Order Comment: Speci men Type: BLOOD SPECIMEN Ordering Facility: [facility] Address: [address] Performed By: #### 2 4323-8, 82120-3 #### [facility] CLIA [id number] [address] [place] [address] [place] AST With P-5'-P [Catalytic activity/Vol] 34 U/L Normal 14-40 [facility] Comment on above: Order Comment: Speci men Type: BLOOD SPECIMEN Ordering Facility: [facility] Address: [address] [address] Performed By: #### 2 4323-8, 70740-0 #### [facility] CLIA [id number] [address] [place] [address] [place] Bilirubin [Mass/Vol] 0.4 mg/dL Normal 0.2-1.3 [facility] Comment on above: Order Comment: Speci men Type: BLOOD SPECIMEN Ordering Facility: [facility] Address: [address] [address] Performed By: #### 2 432-8, 47311-5 #### [facility] CLIA [id number] [address] [place] [address] [place] Calcium [Mass/Vol] 9.8 mg/dL Normal 8.5-10.2 [facility] Comment on above: Order Comment: Speci men Type: BLOOD SPECIMEN Ordering Facility: [facility] Address: [address] [address] Performed By: #### 2 4323-8, 13709-0 #### [facility] CLIA [id number] [address] [place] [address] [place] Chloride [Moles/Vol] 103 mmol/L Normal 97-105 [facility] Comment on above: Order Comment: Speci men Type: BLOOD SPECIMEN Ordering Facility: [facility] Address: [address] [address] Performed By: #### 2 4323-8, 98596-5 #### [facility] CLIA [id number] [address] [place] [address] [place] CO2 [Moles/Vol] 29 mmol/L Normal 22-30 [facility] Comment on above: Order Comment: Jayson cordova Type: BLOOD SPECIMEN Ordering Facility: [facility] Address: [address] [place] [address] Performed By: #### 2 4323-8, 60369-3 #### [facility] CLIA [id number] [address] [place] [address] [place] Creatinine [Mass/Vol] 1.23 mg/dL High 0.73-1.22 [facility] Comment on above: Order Comment: Yumii men Type: BLOOD SPECIMEN Ordering Facility: [facility] Address: [address] [place] [address] Performed By: #### 2 4323-8, 81104-6 #### [facility] CLIA [id number] [address] [facility] ESTIMATED GLOMERULAR FILTRATION RATE 66 mL/min/1.73m??? Normal >=60 [facility] Comment on above: Order Comment: Jayson men Type: BLOOD SPECIMEN Ordering Facility: [facility] Address: [address] [place] [address] Result Comment: Cara mated Glomerular Filtration Rate (eGFR) is calculated using the 2020 CKD-EPI creatinine equation. This equation utilizes serum creatinine, sex, and age as parameters. The creatinine assay has traceable calibration to isotope dilution-mass spectrometry. Refer to KDIGO guidelines for clinical interpretation. In patients with unstable renal function, e.g. those with acute kidney injury, the eGFR may not accurately reflect actual GFR. Performed By: #### 2 4323-8, 06431-6 #### [facility] CLIA [id number] [address] [id number] [place] Glucose [Mass/Vol] 92 mg/dL Normal 74-99 [facility] Comment on above: Order Comment: Yumii men Type: BLOOD SPECIMEN Ordering Facility: [facility] Address: [address] [place] [address] Result Comment: The [place] Diabetes Association (ADA) provides guidance for cutoff values for fasting glucose and random glucose. The ADA defines fasting as no caloric intake for at least 8 hours. Fasting plasma glucose results between 100 to 125 mg/dL indicate increased risk for diabetes (prediabetes). Fasting plasma glucose results greater than or equal to 126 mg/dL meet the criteria for diagnosis of diabetes. In the absence of unequivocal hyperglycemia, results should be confirmed by repeat testing. In a patient with classic symptoms of hyperglycemia or hyperglycemic crisis, random plasma glucose results greater than or equal to 200 mg/dL meet the criteria for diagnosis of diabetes. Reference: Standards of Medical Care in Diabetes 2016, [place] Diabetes Association. Diabetes Care. 2016.39(Suppl 1). Performed By: #### 2 4323-8, 77993-8 #### [facility] CLIA [id number] [address] [place] [address] [place] Potassium [Moles/Vol] 4.6 mmol/L Normal 3.7-5.1 [facility] Comment on above: Order Comment: Jayson cordova Type: BLOOD SPECIMEN Ordering Facility: [facility] Address: [address] [address] Performed By: #### 2 43209-28, 30073-4 #### [facility] CLIA [id number] [address] [place] [address] [place] Protein [Mass/Vol] 6.9 g/dL Normal 6.3-8.0 [facility] Comment on above: Order Comment: Jayson cordova Type: BLOOD SPECIMEN Ordering Facility: [facility] Address: [address] [address] Performed By: #### 2 4328, 93157-9 #### [facility] CLIA [id number] [address] [place] [address] [place] Sodium [Moles/Vol] 139 mmol/L Normal 136-144 [facility] Comment on above: Order Comment: Jayson cordova Type: BLOOD SPECIMEN Ordering Facility: [facility] Address: [address] [address] Performed By: #### 2 4328, 34053-6 #### [facility] CLIA [id number] [address] [place] [address] [facility] OF [place] Urea nitrogen [Mass/Vol] 15 mg/dL Normal 9-24 [facility] Comment on above: Order Comment: Speci men Type: BLOOD SPECIMEN Ordering Facility: [facility] Address: [address] [place] [address] Performed By: #### 2 4323-8, 81804-1 #### [facility] CLIA [id number] [address] [place] [address] [facility] OF [place] Lipid 1996 panelon 3 Cholesterol [Mass/Vol] 209 mg/dL High <200 [facility] Comment on above: Order Comment: Yumii men Type: BLOOD SPECIMEN Ordering Facility: [facility] Address: [address] [place] [address] Result Comment: <200 mg/dL, Desirable 200-239 mg/dL, Borderline high >239 mg/dL, High Performed By: #### 2 4323-8, 13669-3 #### [facility] CLIA [id number] [address] Cholesterol in HDL [Mass/Vol] 34 mg/dL Low >39 [facility] Comment on above: Order Comment: Speci men Type: BLOOD SPECIMEN Ordering Facility: [facility] Address: [address] [place] [address] Result Comment: 40-5 9 mg/dL, Acceptable >59 mg/dL, High: Negative risk factor for coronary heart disease <40 mg/dL, Low: Positive risk factor for coronary heart disease Performed By: #### 2 4323-8, 83898-5 #### [facility] CLIA [id number] [address] Cholesterol in LDL [Mass/Vol] 122 mg/dL High <100 [facility] Comment on above: Order Comment: Yumii men Type: BLOOD SPECIMEN Ordering Facility: [facility] Address: [address] [place] [address] Result Comment: <100 mg/dL, Optimal 100-129 mg/dL, Near optimal/above optimal 130-159 mg/dL, Borderline high 160-189 mg/dL, High >189 mg/dL, Very high Secondary prevention optimal LDL Cholesterol levels are recommended to be < 70 mg/dL Performed By: #### 2 4323-8, 21872-3 #### [facility] CLIA [id number] [address] [place] [address] [place] Cholesterol in LDL/Cholesterol in HDL [Mass ratio] 3.59 {ratio} High <2.54 [facility] Comment on above: Order Comment: Jayson cordova Type: BLOOD SPECIMEN Ordering Facility: [facility] Address: [address] [place] [address] Result Comment: Kraig minaya: 1. National Cholesterol Education Program ATP III Guideline At-A-Glance Quick Desk Reference: National Heart, Lung, and Blood [place]. National Institutes of Health. 2001: NIH Publication No. 01-3305. 2. An International Atherosclerosis Society position paper: global recommendations for the management of dyslipidemia: executive summary, Atherosclerosis. 2014: 232(2):410-413. Performed By: #### 2 4323-8, #### [facility] CLIA [id number] [address] [place] [address] [place] Cholesterol in VLDL [Mass/Vol] 53 mg/dL High <30 [facility] Comment on above: Order Comment: Jayson cordova Type: BLOOD SPECIMEN Ordering Facility: [facility] Address: [address] [address] Performed By: #### 2 4323-8, #### [facility] CLIA [id number] [address] [place] [address] [place] Cholesterol non HDL [Mass/Vol] 175 mg/dL High <130 [facility] Comment on above: Order Comment: Jayson cordova Type: BLOOD SPECIMEN Ordering Facility: [facility] Address: [address] [address] Result Comment: <130 mg/dL, Optimal 130-159 mg/dL, Near optimal/above optimal 160-189 mg/dL, Borderline high 190-219 mg/dL, High >219 mg/dL, Very high Secondary prevention optimal non HDL Cholesterol levels are recommended to be <100 mg/dL Performed By: #### 2 4323-8, 48490-9 #### [facility] CLIA [id number] [address] [place], [place] [address] [place] [address] Cholesterol.total /Cholesterol in HDL [Mass ratio] 6.15 {ratio} High <5.10 [facility] Comment on above: Order Comment: Speci men Type: BLOOD SPECIMEN Ordering Facility: [facility] Address: [address] [place] [address] Performed By: #### 2 4323-8, 54684-2 #### [facility] CLIA [id number] [address] FASTING TIME 12 hrs Normal [facility] Comment on above: Order Comment: Speci men Type: BLOOD SPECIMEN Ordering Facility: [facility] Address: [address] [place] [address] Performed By: #### 2 4323-8, 84092-1 #### [facility] CLIA [id number] [address] Triglyceride [Mass/Vol] 264 mg/dL High <150 [facility] Comment on above: Order Comment: Speci men Type: BLOOD SPECIMEN Ordering Facility: [facility] Address: [address] [place] [address] Result Comment: <150 mg/dL, Normal 150-199 mg/dL, Borderline high 200-499 mg/dL, High >499 mg/dL, Very high Performed By: #### 2 4323-8, 50179-8 #### [facility] CLIA [id number] [address] [place] PSA/PROSTSPECAG SCRNon 09-21 Prostate specific Ag [Mass/Vol] 0.41 ng/mL Normal <2.60 [facility] Comment on above: Order Comment: Speci men Type: BLOOD SPECIMEN Ordering Facility: [facility] Address: [address] [place] [address] Result Comment: Lukea l PSA test methodology used is the Electrochemiluminescence Immunoassay by [employer]. Total PSA values by differing methodologies cannot be interchanged. Performed By: #### P SAS1 #### [facility] CLIA [id number] [address] [place] [address] [place] 12 Lead EKGon 04-16-2021 12 Lead EKG [facility] [address] [place] [address] 12 Lead EKG 04/16/21 0849 MR#: [id number] Acct: [id number] Name: AMANDA WILLAMS Rep #: [id number] : 1960 61 From: Steve Sherwood MD Attending Dr: Status: DEP ER Ordering Dr: Provider,Ed P. Date: 04/16/21 Location: ED Sex: M C Admitted: Test Reason : [facility] Blood Pressure : / mmHG Vent. Rate : 084 BPM Atrial Rate : 084 BPM P-R Int : 156 ms QRS Dur : 088 ms QT Int : 362 ms P-R-T Axes : 054 007 061 degrees QTc Int : 427 ms Normal sinus rhythm Low voltage QRS (Limb Leads) Borderline ECG Confirmed by KAELA PURDY, STEVE ([id number]), index editor ZACHARY ROCHA ([id number]) on 04/19/2021 11:40:33 AM Referred By: GISSELL Confirmed By:STEVE SHERWOOD MD 04/19/21 1140 Date Steve Sherwood MD CC: Dr. Xiomara Bonner, ; ED PHYSICIAN PROVIDER; Ben Pruett Signed Normal [facility] Basic Metabolic Profile (BMP )on 04-16-2021 BUN/CRE 10.6 RATIO Normal 10-20 [facility] Comment on above: Order Comment: 1 Performed By: #### L 100.0100, L500.2500, L501.4020 #### [facility] [address] [place], [address] CA,Total 8.9 mg/dL Normal 8.5-10.1 [facility] Comment on above: Order Comment: 1 Performed By: #### L 100.0100, L500.2500, L501.4020 #### [facility] [address] [place], [address] Chloride [Moles/Vol] 108 mmol/L High 98-107 [facility] Comment on above: Order Comment: 1 Performed By: #### L 100.0100, L500.2500, L501.4020 #### [facility] [address] [place], [address] CO2 [Moles/Vol] 29.0 mmol/L Normal 21.0-32.0 [facility] Comment on above: Order Comment: 1 Performed By: #### L 100.0100, L500.2500, L501.4020 #### [facility] [address] [place], [address] Creatinine [Mass/Vol] 1.23 mg/dL Normal 0.70-1.30 [facility] Comment on above: Order Comment: 1 Result Comment: The validity of the calculated GFR GFRAA in patients over 70 years has not been determined. Clinical correlation is essential. Performed By: #### L 100.0100, L500.2500, L501.4020 #### [facility] [address] [place], [address] ECRCL 71.27 ml/min Normal [facility] Comment on above: Order Comment: 1 Performed By: #### L 100.0100, L500.2500, L501.4020 #### [facility] [address] [place], [address] EST GFR - AA 77 mL/min Normal >60 [facility] Comment on above: Order Comment: 1 Result Comment: Afri can Turkish GFR Calc Performed By: #### L 100.0100, L500.2500, L501.4020 #### [facility] [address] [place], [address] GAP 3 Low 5-15 [facility] Comment on above: Order Comment: 1 Performed By: #### L 100.0100, L500.2500, L501.4020 #### [facility] [address] [place], [address] GFR/1.73 sq M.predicted among non-blacks MDRD (S/P/Bld) [Vol rate/Area] 64 mL/min/{1.73_m2} Normal >60 [facility] Comment on above: Order Comment: 1 Result Comment: Non- GFR Calc Performed By: #### L 100.0100, L500.2500, L501.4020 #### [facility] [address] [place], [address] Glucose [Mass/Vol] 90 mg/dL Normal 74-106 [facility] Comment on above: Order Comment: 1 Result Comment: Rosa hurt note revised GLUCOSE reference range effective 2017. Performed By: #### L 100.0100, L500.2500, L501.4020 #### [facility] [address] [place], [address] Potassium [Moles/Vol] 4.4 mmol/L Normal 3.5-5.1 [facility] Comment on above: Order Comment: 1 Performed By: #### L 100.0100, L500.2500, L501.4020 #### [facility] [address] [place], [address] Sodium [Moles/Vol] 140 mmol/L Normal 136-145 [facility] Comment on above: Order Comment: 1 Performed By: #### L 100.0100, L500.2500, L501.4020 #### [facility] [address] [place], [address] Urea nitrogen [Mass/Vol] 13 mg/dL Normal 7-18 [facility] Comment on above: Order Comment: 1 Performed By: #### L 100.0100, L500.2500, L501.4020 #### [facility] [address] [place], [address] CBC W/Diff, Automatedon 09-2 -2020 Absolute Lymph 1.65 X10 3/uL Normal 0.83-4.51 [facility] Comment on above: Performed By: #### L 100.0100, L500.2500, L501.4020 #### [facility] [address] [place], [address] Absolute Neut 3.6 X10 3/uL Normal 2.0-7.7 [facility] Comment on above: Performed By: #### L 100.0100, L500.2500, L501.4020 #### [facility] [address] [place], [address] Basophils/100 WBC (Bld) 0.5 % Normal 0-1 [facility] Comment on above: Performed By: #### L 100.0100, L500.2500, L501.4020 #### [facility] [address] [place], [address] Eosinophils/100 WBC (Bld) 4.3 % Normal 0-5 [facility] Comment on above: Performed By: #### L 100.0100, L500.2500, L501.4020 #### [facility] [address] [place], [address] Erythrocyte distribution width (RBC) [Ratio] 12.9 % Normal 11.6-14.6 [facility] Comment on above: Performed By: #### L 100.0100, L500.2500, L501.4020 #### [facility] [address] [place], [address] Hematocrit (Bld) [Volume fraction] 49.4 % Normal 40-54 [facility] Comment on above: Performed By: #### L 100.0100, L500.2500, L501.4020 #### [facility] [address] [place], [address] Hemoglobin (Bld) [Mass/Vol] 16.3 g/dL Normal 13.0-16.5 [facility] Comment on above: Performed By: #### L 100.0100, L500.2500, L501.4020 #### [facility] [address] [place], [address] IG% 0.500 Normal 0.0-0.9 [facility] Comment on above: Result Comment: IG% - Immature Granulocytes (promyelocytes, myelocytes and metamyelocytes) > 1% indicates that a LEFT SHIFT is Present. Performed By: #### L 100.0100, L500.2500, L501.4020 #### [facility] [address] [place], [address] Lymphocytes/100 WBC (Bld) 27.5 % Normal 19-41 [facility] Comment on above: Performed By: #### L 100.0100, L500.2500, L501.4020 #### [facility] [address] [place], [address] MCH (RBC) [Entitic mass] 30.4 pg Normal 27.0-32.0 [facility] Comment on above: Performed By: #### L 100.0100, L500.2500, L501.4020 #### [facility] [address] [place], [address] MCHC (RBC) [Mass/Vol] 33.0 g/dL Normal 32-36 [facility] Comment on above: Performed By: #### L 100.0100, L500.2500, L501.4020 #### [facility] [address] [place], [address] MCV (RBC) [Entitic vol] 92.0 fL Normal 80-94 [facility] Comment on above: Performed By: #### L 100.0100, L500.2500, L501.4020 #### [facility] [address] [place], [address] Monocytes/100 WBC (Bld) 8.0 % Normal 0-10 [facility] Comment on above: Performed By: #### L 100.0100, L500.2500, L501.4020 #### [facility] [address] [place], [address] Neutrophils/100 WBC (Bld) 59.2 % Normal 47-70 [facility] Comment on above: Performed By: #### L 100.0100, L500.2500, L501.4020 #### [facility] [address] [place], [address] Nucleated RBC (Bld) [#/Vol] 0 10*3/uL Normal 0-5 [facility] Comment on above: Performed By: #### L 100.0100, L500.2500, L501.4020 #### [facility] [address] [place], [address] Platelet mean volume (Bld) [Entitic vol] 11.1 fL Normal 6.2-12.0 [facility] Comment on above: Performed By: #### L 100.0100, L500.2500, L501.4020 #### [facility] [address] [place], [address] Platelets (Bld) [#/Vol] 134 10*3/uL Low 150-450 [facility] Comment on above: Performed By: #### L 100.0100, L500.2500, L501.4020 #### [facility] [address] [place], [address] RBC (Bld) [#/Vol] 5.37 10*6/uL Normal 4.6-6.2 [facility] Comment on above: Performed By: #### L 100.0100, L500.2500, L501.4020 #### [facility] [address] [place], [address] RDW SD 43.8 fl Normal 35.1-43.9 [facility] Comment on above: Performed By: #### L 100.0100, L500.2500, L501.4020 #### [facility] [address] [place], [address] WBC (Bld) [#/Vol] 6.0 10*3/uL Normal 4.4-11.0 [facility] Comment on above: Performed By: #### L 100.0100, L500.2500, L501.4020 #### [facility] [address] [place], [address] Chest 1 View (Portable)on Chest 1 View (Portable) [facility] Imaging Services [address] [address] [place] [address] Chest 1 View (Portable) MR#: [id number] Acct: [id number] Name: AMANDA WILLAMS Rep #: [id number] : 1960 M 61 From: Liu benson MD PCP: Ben Pruett Status: [facility] ER Study: Chest 1 View (Portable) Date of Exam: 04/16/21 Exam# [id number] Ordering Dr: Provider,Ed P. STUDY: X-RAY CHEST REASON FOR EXAM: Male, 61 years old. Chest pain TECHNIQUE: Single AP portable view of the chest. COMPARISON: None. FINDINGS: EKG electrodes are seen. Hyperinflation. The lungs are clear. There is no demonstrated pleural abnormality. Normal size heart. Normal mediastinum and juanis. Normal visualized pulmonary arteries. There is atherosclerotic tortuosity of the aortic arch and descending thoracic aorta. Normal visualized thoracic spine. Normal visualized ribs, clavicles, and shoulders. There is no demonstrated abnormality of the visualized soft tissue structures of the upper abdomen. RAD/Chest 1 View (Portable) IMPRESSION: Hyperinflation. The lungs are clear. Electronically Signed: Liu Clayton MD at 9:49 EDT , Service support , CC: ED PHYSICIAN PROVIDER; Ben Pruett [employer]umber [employer] Offbearer: Signed Normal [facility] Emergency Department Summary on 04-16-2021 Emergency Department Summary [facility] Medical Records Department [address] [place] [address] Emergency Department Summary 04/16/21 MR#: [id number] Acct: [id number] Name: AMANDA WILLAMS Rep #: [id number] : 1960 61 From: Xiomara Bonner DO PCP: Ben Pruett Status:DEP ER Location: ED HPI History of Present Illness Chief Complaint: Palpitations Informant: patient and EMS Narrative Narrative: Patient is a 61-year-old male with history of bipolar disorder presenting with palpitations. Patient states around 720 this morning he was picking up delivery box not as any feeling his heart was racing. He states he felt weird. He checked his pulse at home on his home pulse oximeter and saw that it was between 150 and 167. It was worse when he stood up. He Nu[place] associated chest pain. He called EMS and was brought to the emergency room. EMS did an EKG concerning for SVT and gave him 6 mg of IV adenosine and then 12 mg with conversion to NSR. Patient resolution of his symptoms after this. Patient currently has no complaints. He states he has otherwise been feeling well. He denies any history of arrhythmia or any cardiac history but does note that he had an ultrasound of his heart 10 years ago that said one of his valves did work well. He does not remember any further details. PFSH PFSH Medical History Bipolar 1 disorder Allergy/AdvReac Type Severity Reaction Status Date / Time No Known Allergies Allergy Verified 04/16/21 08:48 Social History Smoking Status: Former smoker ROS ROS ED Constitutional Constitutional ED: Denies fatigue or weakness Eyes Eyes: Denies blurry vision ENT ENT ED: Denies sore throat Cardiovascular Cardiovascular: Reports palpitations and racing heartbeat; Denies chest pain Respiratory/Chest Respiratory/Chest: Denies cough, dyspnea or dyspnea on exertion Gastrointestinal Gastrointestinal: Denies abdominal pain, nausea or vomiting Genitourinary Genitourinary ED: Denies decreased urination or dysuria Musculoskeletal Musculoskeletal: Denies extremity pain Integumentary Denies new lesions or rash Neurologic Neurologic: Denies paresthesias or weakness Psychiatric Psychiatric: Denies anxiety or depression Hematologic/Lymphatic Hematologic/Lymphatic: Denies easy bleeding or easy bruising EXAM Physical Exam Const Vital Signs: 04/16/21 08:48 04/16/21 09:42 04/16/21 10:13 Temperature 98 F Temperature Source Temporal Pulse Rate 85 91 Respiratory Rate 22 H 22 H Respiratory Effort Normal Non-Labored Respiratory Pattern Normal Blood Pressure 142/84 H 114/87 H Blood Pressure Mean 103 Pulse Ox 99 97 98 Oxygen Delivery Method Room Air Room Air Positive well nourished and well developed General Appearance ED: well developed HEENT Reports moist mucous membranes normocephalic Mouth ED: Yes moist mucous membranes normal Eyes PERRL and EOMs intact bilaterally General Eye ED: Yes normal appearance of both eyes Pupil: PERRL Neck supple and no JVD Lymph Lymphatic: no lymphadenopathy noted Chest Wall inspection of chest normal and palpation of chest normal Resp normal respiratory effort, normal air movement and clear to auscultation bilaterally Cardio regular rate and regular rhythm Peripheral Pulses: pulses 2+ throughout GI normal to inspection, nondistended, normoactive bowel sounds, non-tender and non-distended Back/Spine no CVA tenderness and normal to inspection Extremity normal to inspection and full ROM Neuro oriented x3, moves all extremities and no focal motor deficits Sensorium / Orientation: alert Motor Exam: Negative for general weakness Psych mental status grossly normal and thought process normal Skin no rashes or lesions noted and no petechiae MDM MDM MDM Narrative Medical decision making narrative: Patient evaluated after episode of palpitations which appears to have been SVT per EMS. Patient converted in route. Patient be discharged home after negative work- up in the ER including normal troponin, TSH, CBC and CMP. Chest x-ray shows hyperinflation with no other acute process. Patient is hemodynamically stable in the emergency room. He is instructed to follow-up with his PCP for further outpatient evaluation. Patient agreeable with this plan of care. Is discharged home in stable condition. He is counseled on vagal maneuvers. Lab Data Attestation: I reviewed the patient's lab results. Labs: Laboratory Results - last 24 hr 04/16/21 04/16/21 04/16/21 09:15 09:15 09:15 WBC 6.0 RBC 5.37 Hgb 16.3 Hct 49.4 MCV 92.0 MCH 30.4 MCHC 33.0 RDW Std Deviation 43.8 RDW Coeff of Criss 12.9 Plt Count 134 L MPV 11.1 Immatu (more content not included)... Normal [facility] L501.4020on 04-16-2021 TROPONIN-I HS 7 pg/mL Normal 3.0-78.0 [facility] Comment on above: Order Comment: 1 Result Comment: Rosa hurt Note: New Test Units and Gender Specific Reference Ranges. For more information see Policy Stat Procedure [place] High Sensitivity Troponin (TNIH) and attachments. Performed By: #### L 100.0100, L500.2500, L501.4020 #### [facility] [address] [place], [address] Magnesiumon 04-16-2021 Magnesium [Mass/Vol] 2.1 mg/dL Normal 1.6-2.6 [facility] Comment on above: Performed By: #### L 501.5200, L501.9520 #### [facility] [address] [place], [address] Thyroid Stim Hormone (TSH)on 04-16-2021 TSH 1.31 uIU/mL Normal 0.358-3.74 [facility] Comment on above: Performed By: #### L 501.5200, L501.9520 #### [facility] [address] [place], [place], [id number] Vital Signs Date Time Vital Sign Value Performing Clinician Inocencio moreno 11-25-2024 16:47-0400 Body mass index (BMI) [Ratio] 32.46 kg/m2 Tonya Alvarado ADMINISTRATIVE PROGRAM SPECIALIST.ELECTRICIAN SUPERVISOR AIRPLANE Work Phone: [facility] 11-25-2024 16:47-0400 Body temperature 97.7 [degF] Tonya Alvarado ADMINISTRATIVE PROGRAM SPECIALIST.ELECTRICIAN SUPERVISOR [employer]PLANE Work Phone: [facility] 11-25-2024 16:47-0400 Body weight 111.58 kg Tonya Alvarado ADMINISTRATIVE PROGRAM SPECIALIST.ELECTRICIAN SUPERVISOR [employer]PLANE Work Phone: [facility] 11-25-2024 16:47-0400 Diastolic blood pressure 70 mm[Hg] Tonya Alvarado ADMINISTRATIVE PROGRAM SPECIALIST.ELECTRICIAN SUPERVISOR [employer]PLANE Work Phone: [facility] 11-25-2024 16:47-0400 Heart rate 93 /min Tonya Alvarado ADMINISTRATIVE PROGRAM SPECIALIST.ELECTRICIAN SUPERVISOR [employer]PLANE Work Phone: [facility] 11-25-2024 16:47-0400 SaO2% (BldA) [Mass fraction] 98 % Tonya Alvarado ADMINISTRATIVE PROGRAM SPECIALIST.ELECTRICIAN SUPERVISOR [employer]ANE Work Phone: [facility] 11-25-2024 16:47-0400 Systolic blood pressure 103 mm[Hg] Tonya Alvarado ADMINISTRATIVE PROGRAM SPECIALIST.ELECTRICIAN SUPERVISOR [employer]PLANE Work Phone: [facility] 09-30-2024 11:06-0400 Body height 185.4 cm Ben Pruett MD Work Phone: [facility] 09-30-2024 11:06-0400 Body mass index (BMI) [Ratio] 31.99 kg/m2 eBn Pruett MD Work Phone: [facility] 09-30-2024 11:06-0400 Body weight 110 kg Ben Pruett MD Work Phone: [facility] 09-30-2024 11:06-0400 Diastolic blood pressure 84 mm[Hg] Ben Pruett MD Work Phone: [facility] 09-30-2024 11:06-0400 Heart rate 80 /min Ben Pruett MD Work Phone: [facility] 09-30-2024 11:06-0400 SaO2% (BldA) [Mass fraction] 97 % Ben Pruett MD Work Phone: [facility] 09-30-2024 11:06-0400 Systolic blood pressure 124 mm[Hg] Ben Pruett MD Work Phone: [facility] 10-31-2023 15:08-0400 Body weight 110.2 kg Ben Pruett MD Work Phone: [facility] 10-31-2023 15:08-0400 Diastolic blood pressure 85 mm[Hg] Ben Pruett MD Work Phone: [facility] 10-31-2023 15:08-0400 Heart rate 95 /min Ben Pruett MD Work Phone: [facility] 10-31-2023 15:08-0400 SaO2% (BldA) [Mass fraction] 99 % Ben Pruett MD Work Phone: [facility] 10-31-2023 15:08-0400 Systolic blood pressure 130 mm[Hg] Ben Pruett MD Work Phone: [facility] 09-29-2022 14:36-0500 Body height 185.4 cm Ben Pruett MD Work Phone: [facility] 09-29-2022 14:36-0500 Body weight 108.41 kg Ben Pruett MD Work Phone: [facility] 09-29-2022 14:36-0500 Diastolic blood pressure 79 mm[Hg] Ben Pruett MD Work Phone: [facility] 09-29-2022 14:36-0500 Heart rate 80 /min Ben Pruett MD Work Phone: [facility] 09-29-2022 14:36-0500 SaO2% (BldA) [Mass fraction] 98 % Ben Pruett MD Work Phone: [facility] 09-29-2022 14:36-0500 Systolic blood pressure 133 mm[Hg] Ben Pruett MD Work Phone: [facility] Encounters Encounter Date Encounter Type Care Provider Facility Start: 11-25-2024 End: 11-25-2024 Office outpatient visit 25 minutes Tonya Alvarado APRN.ELECTRICIAN SUPERVISOR [employer]PLANE Work Phone: [facility] Comment on above: Acute right-sided lo w back pain, unspecified whether sciatica present (Primary Dx); Acute pain of right knee Start: 11-25-2024 End: 11-25-2024 ambulatory BEN PRUETT Facility:[facility] Start: 09-30-2024 End: 09-30-2024 ambulatory BENKRISHNA PRUETT Facility:[facility] Start: 09-30-2024 End: 09-30-2024 Office outpatient visit 15 minutes Ben Pruett MD Work Phone: [facility] Comment on above: SENTHIL (generalized anx iety disorder) (Primary Dx); Healthcare maintenance; Prostate cancer screening Start: 09-30-2024 End: 09-30-2024 Patient encounter status Ben Pruett MD Work Phone: [facility] Start: 09-09-2024 End: 09-18-2024 Refill Ben Pruett MD Work Phone: [facility] Comment on above: Refill Request Appointment Start: 04-11-2024 End: 04-11-2024 Refill Ben Pruett MD Work Phone: [facility] Comment on above: Refill Request Start: 10-31-2023 End: 10-31-2023 Patient encounter procedure Ben Pruett MD Work Phone: [facility] Comment on above: Bright red blood per rectum (Primary Dx) Start: 04-07-2023 Refill Ben arnold MD Work Phone: [facility] Comment on above: Refill Request Start: 10-03-2022 End: 10-04-2022 ambulatory [facility] Facility:[facility] Start: 09-29-2022 End: 09-29-2022 Patient encounter procedure Ben Pruett MD Work Phone: [facility] Comment on above: Wellness examination (Primary Dx); SENTHIL (generalized anxiety disorder); Screening for colon cancer; Screening for HIV (human immunodeficiency virus); Special screening examination for viral disease Start: 09-29-2022 End: 09-29-2022 Patient encounter status Ben Pruett MD Work Phone: [facility] Start: 09-21-2022 End: 09-22-2022 ambulatory [facility] Facility:[facility] Start: 09-21-2022 Encounter for genera l adult medical examination without abnormal findings [facility] Start: 09-08-2022 Refill Ben arnold MD Work Phone: [facility] Comment on above: Refill Request Start: 08-29-2022 Refill Ben arnold MD Work Phone: [facility] Comment on above: Refill Request Start: 07-27-2022 End: 07-27-2022 ambulatory Nataliesorayacb Amol COOMBSELECTRICIAN SUPERVISOR AIRPLANE Work Phone: [facility] Comment on above: Acute non-recurrent maxillary sinusitis (Primary Dx) Start: 07-27-2022 End: 07-27-2022 Telemedicine consultation with patient Vel Robledocyndi COOMBSELECTRICIAN SUPERVISOR AIRPLANE Work Phone: [facility] Start: 02-10-2022 Refill Ben arnold MD Work Phone: [facility] Comment on above: Refill Request Procedures Date Procedure Procedure Detail Performing Clinician Start: 12-08-2022 Colonoscopy Ben Pruett MD Work Phone: Start: 09-29-2022 Ecg routine ecg w/le ast 12 lds i&r only [facility] Provider Start: 09-21-2022 Lipid 1996 panel - S kaia or Plasma Ben Pruett MD Work Phone: Start: 04-20-2020 Adult depression scr eening assessment Ben Pruett MD Work Phone: Plan of Treatment Date Care Activity Detail Author Start: 01-21-2035 RSV Vaccine (1 - 1-d ose 75+ series) RSV Vaccine (1 - 1-dose 75+ series) [facility] Start: 04-18-2029 Urine microalbumin profile [facility] Start: 12-09-2027 Colonoscopy Colonoscopy [facility] Start: 12-09-2027 Colorectal Cancer Screening Colorectal Cancer Screening [facility] Start: 12-09-2027 Screening for malign ant neoplasm of colon [facility] Start: 09-22-2027 Lipid 1996 panel - Serum or Plasma Lipid Screening [facility] Start: 09-22-2027 Lipid panel Lipid Screening [facility] Start: 09-22-2027 LIPID SCREEN LIPID SCREEN [facility] Start: 09-22-2027 PROSTATE CANCER SCREENING DISCUSSION PROSTATE CANCER SCREENING DISCUSSION [facility] Start: 09-22-2027 Prostate specific antigen measurement Prostate Cancer Screening Discussion [facility] Start: 11-10-2025 Cologuard (FIT-DNA) Cologuard (FIT-D NA) [facility] Start: 11-10-2025 Screening for malign ant neoplasm of colon Cologuard (FIT-DNA) [facility] Start: 09-21-2025 DIABETES SCREEN DIABETES SCREEN [facility] Start: 09-21-2025 Diabetes Screening Diabetes Screenin g [facility] Start: 03-24-2025 Influenza vaccination Influenz a Vaccine (Season Ended) [facility] Start: 09-30-2024 End: 12-30-2024 CBC W Auto Differential panel - Blood COMPLETE BLOOD COUNT AND DIFFERENTIAL Lab Routine Healthcare maintenance Expected: 09/30/2024, Expires: 12/30/2024 [facility] Comment on above: Expected: 09/30/2024 , Expires: 12/30/2024 Start: 09-30-2024 End: 12-30-2024 Comprehensive metabolic 2000 panel - Serum or Plasma COMPREHENSIVE METABOLIC PANEL Lab Routine Healthcare maintenance Expected: 09/30/2024, Expires: 12/30/2024 [facility] Comment on above: Expected: 09/30/2024 , Expires: 12/30/2024 Start: 09-30-2024 End: 12-30-2024 Hemoglobin A1c in Blood HEMOGLOBIN A1C Lab Routine Healthcare maintenance Expected: 09/30/2024, Expires: 12/30/2024 [facility] Work Phone: Comment on above: Expected: 09/30/2024 , Expires: 12/30/2024 Start: 09-30-2024 End: 12-30-2024 Lipid 1996 panel - Serum or Plasma LIPID PANEL BASIC Lab Routine Healthcare maintenance Expected: 09/30/2024, Expires: 12/30/2024 [facility] Comment on above: Expected: 09/30/2024 , Expires: 12/30/2024 Start: 09-30-2024 End: 12-30-2024 Microalbumin/Creatinine [Mass Ratio] in Urine ALBUMIN/CREATININE RATIO, URINE Lab Routine Healthcare maintenance Expected: 09/30/2024, Expires: 12/30/2024 [facility] Comment on above: Expected: 09/30/2024 , Expires: 12/30/2024 Start: 09-30-2024 End: 12-30-2024 PSA/PROSTATE SPECIFIC ANTIGEN SCREENING PSA/PROSTATE SPECIFIC ANTIGEN SCREENING Lab Routine Prostate cancer screening Expected: 09/30/2024, Expires: 12/30/2024 [facility] Comment on above: Expected: 09/30/2024 , Expires: 12/30/2024 Start: 09-30-2024 End: 12-30-2024 URINALYSIS, REFLEX MICROSCOPIC URINALYSIS, REFLEX MICROSCOPIC Lab Routine Healthcare maintenance Expected: 09/30/2024, Expires: 12/30/2024 [facility] Comment on above: Expected: 09/30/2024 , Expires: 12/30/2024 Start: 03-24-2024 Covid-19 Vaccine () Covid-19 Vaccine () [facility] Start: 03-24-2024 Covid-19 Vaccine () Covid-19 Vaccine () [facility] Start: 03-24-2024 Influenza vaccination [facility] Start: 07-24-2023 Behavioral Health Screening Behavioral Health Screening [facility] Start: 03-29-2023 Covid-19 Vaccine ( season) Covid-19 Vaccine ( season) [facility] Start: 03-24-2023 Influenza vaccination Influenza Vacc ine (#1) [facility] Start: 01-20-2023 Influenza vaccination INFLUENZA (#1) [facility] Comment on above: Postponed from 03/24 (Declined at this time) Start: 09-29-2022 End: 11-29-2022 COLOGUARD COLOGUARD Lab Routine Screening for colon cancer Expected: 09/29/2022, Expires: 11/29/2022 [facility] Work Phone: Comment on above: Expected: 09/29/2022 , Expires: 11/29/2022 Start: 09-29-2022 End: 11-29-2022 Hepatitis C virus Ab [Presence] in Serum HEP C AB IA W/CONF SCRN Lab Routine Special screening examination for viral disease Expected: 09/29/2022, Expires: 11/29/2022 [facility] Work Phone: Comment on above: Expected: 09/29/2022 , Expires: 11/29/2022 Start: 09-29-2022 End: 11-29-2022 HIV 1+2 Ab [Presence] in Serum or Plasma by Immunoassay HIV 1 2 COMBO(AG/AB),WITH REFLEX TO DIFFERENTIATION Lab Routine Screening for HIV (human immunodeficiency virus) Expected: 09/29/2022, Expires: 11/29/2022 [facility] Work Phone: Comment on above: Expected: 09/29/2022 , Expires: 11/29/2022 Start: 08-22-2022 COLOGUARD (FIT-DNA) COLOGUARD (FIT-D NA) [facility] Start: 08-22-2022 COLORECTAL CANCER SCREENING COLORECTAL CANCER SCREENING [facility] Start: 07-24-2022 DEPRESSION ASSESSMENT DEPRESSION ASS ESSMENT [facility] Start: 03-25-2022 COVID-19 VACCINE (5 - Booster for Moderna series) COVID-19 VACCINE (5 - Booster for Moderna series) [facility] Start: 03-24-2022 Influenza vaccination INFLUENZA (#1) [facility] Start: 09-24-2021 COVID-19 VACCINE (4 - Booster for Moderna series) COVID-19 VACCINE (4 - Booster for Moderna series) [facility] Start: 04-20-2021 Adult depression screening assessment DEPRESSION SCREENING [facility] Start: 2020 RSV Vaccine (1 - 1-d ose 60+ series) RSV Vaccine (1 - 1-dose 60+ series) [facility] Start: 01-21-2015 PROSTATE CANCER SCREENING DISCUSSION PROSTATE CANCER SCREENING DISCUSSION [facility] Start: 01-21-2010 Pneumococcal Vaccine : 50+ (1 of 1 - PCV) Pneumococcal Vaccine: 50+ (1 of 1 - PCV) [facility] Start: 01-21-2010 SHINGRIX VACCINE (1 of 2) SHINGRIX VACCINE (1 of 2) [facility] Start: 01-21-2005 Colonoscopy COLONOSCOPY [facility] Start: 01-21-[address] COLONOGRAPHY [facility] Start: 01-21-2005 DIABETES SCREEN DIABETES SCREEN [facility] Start: 01-21-2005 FECAL OCCULT BLOOD FECAL OCCULT BLOO D [facility] Start: 01-21-2005 Screening for malign ant neoplasm of colon [facility] Start: 01-21-2005 SIGMOIDOSCOPY SIGMOIDOSCOPY [facility] Start: 01-21-1995 LIPID SCREEN LIPID SCREEN [facility] Start: 01-21-1978 Anxiety Screening Anxiety Screening [facility] Start: 01-21-1978 Depression Screening Depression Scre ening [facility] Start: 01-21-1978 HEPATITIS C SCREENING HEPATITIS C SC REENING [facility] Start: 01-21-1978 HIV SCREENING HIV SCREENING [facility] End: 09-30-2023 ECG COMPLETE ECG COMPLETE ECG Routine Wellness examination 1 Occurrences starting 09/29/2022 until 09/30/2023 [facility] Work Phone: Comment on above: 1 Occurrences starti ng 09/29/2022 until 09/30/2023 ECG COMPLETE ECG COMPLETE ECG 09/29/2022 3:[address] [facility] Immunizations Immunization Date Immunization Notes Care Provider Cory garza 02-01-2023 COVID-19 vaccine, ag e 12+ yr, bivalent (PFIZER-BIONTECH) Ben Pruett MD Work Phone: [facility] 01-28-2022 COVID-19 original vaccine, age 12+ yr, monovalent (PFIZER-BIONTECH - MILLER TOP) Ben Pruett MD Work Phone: [facility] Work Phone: 05-27-2021 COVID-19 original vaccine, age 12+ yr, monovalent (PFIZER-BIONTECH - PURPLE TOP) Ben Pruett MD Work Phone: [facility] Work Phone: 10-31-2020 COVID-19 original vaccine, full dose, monovalent (MODERNA) Ben Pruett MD Work Phone: [facility] Work Phone: 10-03-2020 COVID-19 original vaccine, full dose, monovalent (MODERNA) Ben Pruett MD Work Phone: [facility] Work Phone: 04-18-2019 influenza, injectabl e, quadrivalent, contains preservative Ben Pruett MD Work Phone: [facility] 04-18-2019 tetanus toxoid, redu neli diphtheria toxoid, and acellular pertussis vaccine, adsorbed Ben Pruett MD Work Phone: [facility] 04-18-2019 influenza virus vaccine, unspecified formulation Ben Pruett MD Work Phone: [facility] Payers Date Payer Category Payer [facility] [id number] 2022 Unknown [employer] PPO [id number] 2022-Present [phone] [address] [place] [address] PPO [id number] 2022 Unknown [id number] 2019 Private Health Insurance [facility] [employer] CHOICE PLUS [id number] 2019-Present [phone] [address] [address] [place] [address] O [id number] 2019 Private Health Insurance [facility] [employer] CHO[employer] PLUS [id number] 2019-Present [phone] [address] [address] [place] [address] O [id number] Social History Date Type Detail Facility Start: 06-29-2012 End: 09-30-2024 Tobacco smoking status NHIS Ex-smoker [facility] Start: 06-29-1980 End: 06-29-2005 History of tobacco use Current smoker [facility] Start: 06-29-1980 End: 06-29-2005 History of tobacco use Cigarette Smoker [facility] Start: 06-29-2012 End: 09-30-2024 Cigarettes smoked current (pack per day) - Reported 1 [facility] Start: 06-29-2012 End: 09-30-2024 Tobacco use and exposure Smokeless tobacco non-user [facility] Start: 04-20-2020 End: 09-30-2024 Alcohol intake Current drinker of alcohol (finding) [facility] Start: 08-12-2021 End: 09-26-2022 History SDOH Alcohol Frequency 5 [facility] Start: 08-12-2021 End: 09-26-2022 History SDOH Alcohol Std Drinks 1 [facility] Start: 06-29-2012 History SDOH Alcohol Comment SOCIALLY [facility] Start: 08-12-2021 End: 09-26-2022 History SDOH Social Connections Membership 2 [facility] Start: 08-12-2021 End: 09-26-2022 History SDOH Social Connections Living 3 [facility] Start: 04-20-2020 Education 12 [facility] Start: 1960 Sex Assigned At Not on file C [facility] Start: 09-26-2022 History SDOH Social Connections Get Together 98 [facility] Start: 09-26-2022 History SDOH Physica l Activity DPW 6 [facility] Start: 09-26-2022 End: 09-30-2024 Social connection and isolation panel [facility] How often do you get together with friends or relatives? Patient refused [facility] Do you belong to any clubs or organizations such as hinduism groups, unions, fraternal or athletic groups, or school groups? No [facility] Are you now , , , , never or living with a partner? [facility] How often to you hav e a drink containing alcohol? 4 or more times a week [facility] How many standard dr inks containing alcohol do you have on a typical day? 1 or 2 [facility] How often do you hav e 6 or more drinks on 1 occasion? Never [facility] Do you feel stress - tense, restless, nervous, or anxious, or unable to sleep at night because your mind is troubled all the time - these days [OSQ] To some extent [facility] (I/We) worried wheth er (my/our) food would run out before (I/we) got money to buy more. Never true [facility] Start: 07-25-2019 Gender identity Identifies as male gender (finding) [facility] Start: 07-25-2019 Sexual orientation Heterosexual (liza quijano) [facility] Medical Equipment Procedure Code Equipment Code Equipment Origin al Text Equipment Identifier Dates Lens Acrysof 6mm +7.5 Diopter 0 D Biconvex Acrylic 13mm Iol 1 Piece - [id number] Start: 07-22-2019 Lens Iol 0d +6.5 Varun Uv Abs - [id number] Start: 07-22-2019 Clinical Notes 08-13-2008 to 11-25-2024 Patient InstructionsTonya Alvarado APRN.DEZ - 11/25/2024 4:43 PM Ben Somers MD - 09/30/2024 4:56 PM EDTTelephone Encounter - Rock Moncada - 09/18/2024 10:51 AM ESTPatient Instructions Note Date & Type Note Facility 11-25-2024 Instructions Tonya Alvarado APRN.DEZ - 11/25/2024 4:44 PM EDT (M54.50) Acute right-sided low back pain, unspecified whether sciatica present (primary encounter diagnosis) Plan: methylPREDNISolone (MEDROL DOSE-PACK) 4 mg Dose-Pack, cyclobenzaprine (FLEXERIL) 10 mg tablet (M25.561) Acute pain of right knee Plan: methylPREDNISolone (MEDROL DOSE-PACK) 4 mg Dose-Pack -Ice/heat in rotation in 20 minute intervals. -Do not drive or operate heavy machinery with muscle relaxer -Stretching exercises to maintain ROM while using muscle relaxer. -Steroids to be taken with food. No NSAIDs, like ibuprofen or Aleve, while taking steroids. May use tylenol OTC for comfort. -If no improvement please be re-seen in 3-5 days with primary care. -Be seen immediately with worsening symptoms or red flag symptoms. -Warning symptoms/red flag symptoms: loss of bowel/bladder, fevers, inability to ambulate, chest pain, difficulty breathing, and numbness/tingling. documented in this encounter [facility] 11-25-2024 Note HNO ID: [id number] Author: TONYA ALVARADO APRN.CNP Service: ? Author Type: Nurse Practitioner Type: Progress Notes Filed: 11/25/2024 17:01 Note Text: PATIENT NAME: Amanda Willams DATE OF : 1960 TODAYS' DATE: 11/25/2024 Recording using [employer] software for draft documentation of the visit was discussed with the patient/authorized international account representative; all questions welcomed and answered. Patient/authorized international account representative agreed to proceed Subjective: The patient is a 64-year-old male presenting with knee and back pain. History of Present Illness: Knee and Back Pain: - Predominantly knee pain, with some back involvement. - Described as sharp and throbbing. - Initially intermittent, now fairly consistent. - Onset approximately one month ago. - Uncertain if pain radiates up or down the leg. - Denies known trauma or previous injury to the affected areas. - No associated urinary symptoms, loss of bowel or bladder control, or fever. - Ambulation is generally okay, but reports a limp when pain peaks. - Pain occurs both when bearing weight and when changing positions while sitting. - Recently started using Biofreeze and taking ibuprofen for pain management. Review of Systems: Constitutional: (-) fever Gastrointestinal: (-) bowel incontinence Genitourinary: (-) urinary symptoms, (-) bladder incontinence Musculoskeletal: (+) knee pain (sharp, throbbing), (+) back pain (sharp, throbbing), (-) stumbling Allergies: Allergies: No Known Allergies Past Medical History: PAST MEDICAL HISTORY Diagnosis Date Former smoker HEMATOMA ELBOW 08/13/2008 Myopia Obesity, Class I, BMI 30-34.9 04/18/2019 Past Surgical History: PAST SURGICAL HISTORY Procedure Laterality Date REFRACTIVE LENS EXCHANGE Bilateral 07/22/2019 VASECTOMY UNI/BI SPX W/POSTOP SEMEN EXAMS Family History: FAMILY HISTORY Problem Relation Age of Onset No Ocular Disease Father Hyperlipidemia Father Hyperlipidemia Mother Glaucoma Mother Cataract Mother Hyperlipidemia Sister Stroke Maternal Grandmother late 70's/early 80's Heart Attack Maternal Grandfather late 80's Emphysema Paternal Grandfather Hyperlipidemia Sister Tobacco History: Tobacco Use: Types: Cigarettes Medications: Current Outpatient Medications Medication Sig Dispense Refill citalopram hydrobromide (CELEXA) 10 mg tablet Take 1 tablet by mouth once daily. 90 tablet 3 methylPREDNISolone (MEDROL DOSE-PACK) 4 mg Dose-Pack Take as instructed per package. 21 tablet 0 cyclobenzaprine (FLEXERIL) 10 mg tablet Take 1 tablet by mouth every 8 hours as needed for up to 5 days. 10 tablet 0 No current facility-administered medications for this visit. Vitals: BP 103/70 Pulse 93 Temp 36.5 ?C (97.7 ?F) Wt 111.6 kg (246 lb) SpO2 98% BMI 32.46 kg/m? Physical Exam: Physical Exam Vitals reviewed. Constitutional: General: He is not in acute distress. Appearance: He is not ill-appearing, toxic-appearing or diaphoretic. Cardiovascular: Rate and Rhythm: Normal rate and regular rhythm. Pulmonary: Effort: Pulmonary effort is normal. Musculoskeletal: Lumbar back: Normal. Right knee: Bony tenderness present. No swelling or erythema. Tenderness present over the LCL. Neurological: Mental Status: He is alert. Psychiatric: Behavior: Behavior is cooperative. ASSESSMENT/PLAN: (M54.50) Acute right-sided low back pain, unspecified whether sciatica present (primary encounter diagnosis) Plan: methylPREDNISolone (MEDROL DOSE-PACK) 4 mg Dose-Pack, cyclobenzaprine (FLEXERIL) 10 mg tablet (M25.561) Acute pain of right knee Plan: methylPREDNISolone (MEDROL DOSE-PACK) 4 mg Dose-Pack -Ice/heat in rotation in 20 minute intervals. -Do not drive or operate heavy machinery with muscle relaxer -Stretching exercises to maintain ROM while using muscle relaxer. -Steroids to be taken with food. No NSAIDs, like ibuprofen or Aleve, while taking steroids. May use tylenol OTC for comfort. -If no improvement please be re-seen in 3-5 days with primary care. -Be seen immediately with worsening symptoms or red flag symptoms. -Warning symptoms/red flag symptoms: loss of bowel/bladder, fevers, inability to ambulate, chest pain, difficulty breathing, and numbness/tingling. - See patient instructions for further recommendations. - Pt education along with discharge instructions given to pt - Discussed Red Flag signs and when to go to ER. - Pt agreeable with plan and verbalizes understanding. - Follow up with PCP if symptoms worsen or do not improve in the next 2-3 days. Tonya Alvarado APRN.[employer] 4:43 PM 11/25/24 Disposition The patient was discharged. OTC Medications were advised: Tylenol Medical Decision Making: Level: 4 - Moderate [facility] 11-25-2024 History of Present illness Narrative Images from the original note were not included. PATIENT NAME: Amanda Willams DATE OF : 1960 TODAYS' DATE: 11/25/2024 Recording using [employer] software for draft documentation of the visit was discussed with the patient/authorized international account representative; all questions welcomed and answered. Patient/authorized international account representative agreed to proceed Subjective: The patient is a 64-year-old male presenting with knee and back pain. History of Present Illness: Knee and Back Pain: - Predominantly knee pain, with some back involvement. - Described as sharp and throbbing. - Initially intermittent, now fairly consistent. - Onset approximately one month ago. - Uncertain if pain radiates up or down the leg. - Denies known trauma or previous injury to the affected areas. - No associated urinary symptoms, loss of bowel or bladder control, or fever. - Ambulation is generally okay, but reports a limp when pain peaks. - Pain occurs both when bearing weight and when changing positions while sitting. - Recently started using Biofreeze and taking ibuprofen for pain management. Review of Systems: Constitutional: (-) fever Gastrointestinal: (-) bowel incontinence Genitourinary: (-) urinary symptoms, (-) bladder incontinence Musculoskeletal: (+) knee pain (sharp, throbbing), (+) back pain (sharp, throbbing), (-) stumbling Allergies: Allergies: No Known Allergies Past Medical History: PAST MEDICAL HISTORY Diagnosis Date Former smoker HEMATOMA ELBOW 08/13/2008 Myopia Obesity, Class I, BMI 30-34.9 04/18/2019 Past Surgical History: PAST SURGICAL HISTORY Procedure Laterality Date REFRACTIVE LENS EXCHANGE Bilateral 07/22/2019 VASECTOMY UNI/BI SPX W/POSTOP SEMEN EXAMS Family History: FAMILY HISTORY Problem Relation Age of Onset No Ocular Disease Father Hyperlipidemia Father Hyperlipidemia Mother Glaucoma Mother Cataract Mother Hyperlipidemia Sister Stroke Maternal Grandmother late 70's/early 80's Heart Attack Maternal Grandfather late 80's Emphysema Paternal Grandfather Hyperlipidemia Sister Tobacco History: Tobacco Use: Types: Cigarettes Medications: Current Outpatient Medications Medication Sig Dispense Refill citalopram hydrobromide (CELEXA) 10 mg tablet Take 1 tablet by mouth once daily. 90 tablet 3 methylPREDNISolone (MEDROL DOSE-PACK) 4 mg Dose-Pack Take as instructed per package. 21 tablet 0 cyclobenzaprine (FLEXERIL) 10 mg tablet Take 1 tablet by mouth every 8 hours as needed for up to 5 days. 10 tablet 0 No current facility-administered medications for this visit. Vitals: BP 103/70 Pulse 93 Temp 36.5 C (97.7 F) Wt 111.6 kg (246 lb) SpO2 98% BMI 32.46 kg/m Physical Exam: Physical Exam Vitals reviewed. Constitutional: General: He is not in acute distress. Appearance: He is not ill-appearing, toxic-appearing or diaphoretic. Cardiovascular: Rate and Rhythm: Normal rate and regular rhythm. Pulmonary: Effort: Pulmonary effort is normal. Musculoskeletal: Lumbar back: Normal. Right knee: Bony tenderness present. No swelling or erythema. Tenderness present over the LCL. Neurological: Mental Status: He is alert. Psychiatric: Behavior: Behavior is cooperative. ASSESSMENT/PLAN: (M54.50) Acute right-sided low back pain, unspecified whether sciatica present (primary encounter diagnosis) Plan: methylPREDNISolone (MEDROL DOSE-PACK) 4 mg Dose-Pack, cyclobenzaprine (FLEXERIL) 10 mg tablet (M25.561) Acute pain of right knee Plan: methylPREDNISolone (MEDROL DOSE-PACK) 4 mg Dose-Pack -Ice/heat in rotation in 20 minute intervals. -Do not drive or operate heavy machinery with muscle relaxer -Stretching exercises to maintain ROM while using muscle relaxer. -Steroids to be taken with food. No NSAIDs, like ibuprofen or Aleve, while taking steroids. May use tylenol OTC for comfort. -If no improvement please be re-seen in 3-5 days with primary care. -Be seen immediately with worsening symptoms or red flag symptoms. -Warning symptoms/red flag symptoms: loss of bowel/bladder, fevers, inability to ambulate, chest pain, difficulty breathing, and numbness/tingling. - See patient instructions for further recommendations. - Pt education along with discharge instructions given to pt - Discussed Red Flag signs and when to go to ER. - Pt agreeable with plan and verbalizes understanding. - Follow up with PCP if symptoms worsen or do not improve in the next 2-3 days. Tonya Alvarado APRN.CNP 4:43 PM 11/25/24 Disposition The patient was discharged. OTC Medications were advised: Tylenol Medical Decision Making: Level: 4 - Moderate documented in this encounter [facility] 09-30-2024 Note HNO ID: [id number] Author: BEN PRUETT MD Service: ? Author Type: Physician Type: Progress Notes Filed: 09/30/2024 16:57 Note Text: Subjective HPI Patient here for follow-up, history of generalized anxiety. She has been on citalopram, overall this has been very good for his general anxiety as well as agitation. Sleep undisturbed. No reason to change or alter his current treatment regimen. Review of Systems Respiratory: Negative for cough, hemoptysis and sputum production. Cardiovascular: Negative for chest pain, palpitations and orthopnea. Objective Physical Exam Cardiovascular: Rate and Rhythm: Normal rate and regular rhythm. Pulses: Normal pulses. Heart sounds: Normal heart sounds. Pulmonary: Effort: Pulmonary effort is normal. Breath sounds: Normal breath sounds. ASSESSMENT/PLAN: 1. SENTHIL (generalized anxiety disorder) - ICD9: 300.02, ICD10: F41.1 (primary diagnosis) - CITALOPRAM 10 MG TABLET 2. Healthcare maintenance - ICD9: V70.0, ICD10: Z00.00 - HEMOGLOBIN A1C - COMPREHENSIVE METABOLIC PANEL - LIPID PANEL BASIC - ALBUMIN/CREATININE RATIO, URINE - COMPLETE BLOOD COUNT AND DIFFERENTIAL - URINALYSIS, REFLEX MICROSCOPIC 3. Prostate cancer screening - ICD9: V76.44, ICD10: Z12.5 - PSA/PROSTATE SPECIFIC ANTIGEN SCREENING Ben Pruett MD [facility] 09-30-2024 History of Present illness Narrative Subjective HPI Patient here for follow-up, history of generalized anxiety. She has been on citalopram, overall this has been very good for his general anxiety as well as agitation. Sleep undisturbed. No reason to change or alter his current treatment regimen. Review of Systems Respiratory: Negative for cough, hemoptysis and sputum production. Cardiovascular: Negative for chest pain, palpitations and orthopnea. Objective Physical Exam Cardiovascular: Rate and Rhythm: Normal rate and regular rhythm. Pulses: Normal pulses. Heart sounds: Normal heart sounds. Pulmonary: Effort: Pulmonary effort is normal. Breath sounds: Normal breath sounds. ASSESSMENT/PLAN: 1. SENTHIL (generalized anxiety disorder) - ICD9: 300.02, ICD10: F41.1 (primary diagnosis) - CITALOPRAM 10 MG TABLET 2. Healthcare maintenance - ICD9: V70.0, ICD10: Z00.00 - HEMOGLOBIN A1C - COMPREHENSIVE METABOLIC PANEL - LIPID PANEL BASIC - ALBUMIN/CREATININE RATIO, URINE - COMPLETE BLOOD COUNT AND DIFFERENTIAL - URINALYSIS, REFLEX MICROSCOPIC 3. Prostate cancer screening - ICD9: V76.44, ICD10: Z12.5 - PSA/PROSTATE SPECIFIC ANTIGEN SCREENING Ben Pruett MD documented in this encounter [facility] 09-18-2024 Telephone encounter Note 1st attempt at calling patient, did LVM. Last log into [employer] was October of 2023- did not send a [employer] message. Will postpone to ensure another attempt is made. Rock Moncada September 18, 2024 10:53 AM [facility] 09-18-2024 Miscellaneous Notes 1st attempt at calling patient, did LVM. Last log into [employer] was October of 2023- did not send a [employer] message. Will postpone to ensure another attempt is made. Rock Moncada September 18, 2024 10:53 AM Received refill request. Patient not seen since October 2023 Please contact the patient to schedule an appointment. Appointment specifications include: WHY does the patient need to be seen? Yearly Exam WHO should the patient schedule the appointment with? Physician only WHAT specific type of appointment is needed? Physical WHEN should the patient be seen? First available appointment WHERE should the patient be seen? In Office documented in this encounter [facility] 09-09-2024 Telephone encounter Note Received refill request. Patient not seen since October 2023 Please contact the patient to schedule an appointment. Appointment specifications include: WHY does the patient need to be seen? Yearly Exam WHO should the patient schedule the appointment with? Physician only WHAT specific type of appointment is needed? Physical WHEN should the patient be seen? First available appointment WHERE should the patient be seen? In Office [facility] 09-09-2024 Telephone encounter Note Mail order pharmacy requesting Physician: Dr. Pruett Call from pharmacy requesting refill. Please E-Scribe Last OV: 10/31/2023 with PCP Future OV: No future appointments scheduled. Separate encounter sent to clerical staff to schedule an appointment. Requested Prescriptions Pending Prescriptions Disp Refills citalopram hydrobromide (CELEXA) 10 mg tablet 90 tablet 3 Sig: Take 1 tablet by mouth once daily. Maria Eugenia Louis MA [facility] 09-09-2024 Miscellaneous Notes Mail order pharmacy requesting Physician: Dr. Pruett Call from pharmacy requesting refill. Please E-Scribe Last OV: 10/31/2023 with PCP Future OV: No future appointments scheduled. Separate encounter sent to clerical staff to schedule an appointment. Requested Prescriptions Pending Prescriptions Disp Refills citalopram hydrobromide (CELEXA) 10 mg tablet 90 tablet 3 Sig: Take 1 tablet by mouth once daily. Maria Eugenia Louis MA documented in this encounter [facility] 04-11-2024 Telephone encounter Note Physician: Call from patient requesting refill. Please E-Scribe Last OV: 10/31/2023 with Future OV: Requested Prescriptions Pending Prescriptions Disp Refills citalopram hydrobromide (CELEXA) 10 mg tablet [Pharmacy Med Name: CITALOPRAM HBR 10 MG TABLET] 90 tablet 3 Sig: take 1 tablet by mouth every day Pharmacy Name: [facility]- [facility]/pharmacy #[id number] - [place] [address] - [address] [phone] [place] [address] Vee Burt MA [facility] 04-11-2024 Miscellaneous Notes Physician: Call from patient requesting refill. Please E-Scribe Last OV: 10/31/2023 with Future OV: Requested Prescriptions Pending Prescriptions Disp Refills citalopram hydrobromide (CELEXA) 10 mg tablet [Pharmacy Med Name: CITALOPRAM HBR 10 MG TABLET] 90 tablet 3 Sig: take 1 tablet by mouth every day Pharmacy Name: [facility]- [id number] [place] [address] - [address] [phone] [place] [address] Vee Burt MA documented in this encounter [facility] 10-31-2023 History of Present illness Narrative This note was created using [employer]. Subjective Amanda Willams is a 63 year old male here for rectal bleeding. Had abdominal cramping. Recently noted blood splash of blood in toilet. Yesterday last incident. Feels well otherwise. Colonoscopy 12/08/2022 showed hemorrhoids with polyp removal. Review of Systems Gastrointestinal: Positive for anal bleeding. Objective BP 130/85 Pulse 95 Wt 110.2 kg (242 lb 15.2 oz) SpO2 99% BMI 32.05 kg/m Physical Exam Vitals reviewed. Constitutional: Appearance: Normal appearance. Abdominal: Palpations: Abdomen is soft. Tenderness: There is no abdominal tenderness. Neurological: Mental Status: He is alert. Assessment and Plan ASSESSMENT/PLAN: 1. Bright red blood per rectum - ICD9: 569.3, ICD10: K62.5 - Likely internal hemorrhoids. - Less likely diverticula - Monitor Jazmyn Clark APRN.[employer] Attending Note I have personally performed a face to face assessment of the patient and have reviewed the EDUARDO note. I performed a substantive portion of the visit including all aspects of the following. My schmid findings include: 2 episodes of bright red blood per rectum, painless. Was in the toilet bowl, at that time had no significant straining. Prior colonoscopy in 2022 shows that he had had internal hemorrhoids and diverticula, the fact that the bleeding was so short-lived is consistent with hemorrhoids at this point no further workup is necessary. If he does have further bleeding may have to have a colonoscopy repeated Other additions or changes: None Signature: Ben Pruett MD Date: 10/31/2023 Time: 4:55 PM documented in this encounter [facility] 09-30-2022 History of Present illness Narrative Subjective HPI Here for wellness examination, doing very well without major issues or problems, currently has had no major issues or problems reviewed his med list as well as his health maintenance, the only things left on his health maintenance of significance of the COVID and shingles vaccine which he agrees to get done as soon as possible. For his generalized anxiety control has been adequate with the current treatment with citalopram 10 mg. Review of Systems Respiratory: Negative for cough, hemoptysis and sputum production. Cardiovascular: Negative for chest pain, palpitations and orthopnea. Genitourinary: Negative for dysuria, frequency and urgency. Psychiatric/Behavioral: Negative for depression. The patient is not nervous/anxious and does not have insomnia. Objective Physical Exam Cardiovascular: Rate and Rhythm: Normal rate and regular rhythm. Pulses: Normal pulses. Heart sounds: Normal heart sounds. Pulmonary: Effort: Pulmonary effort is normal. Breath sounds: Normal breath sounds. Abdominal: General: Abdomen is flat. Palpations: Abdomen is soft. Neurological: General: No focal deficit present. Mental Status: He is oriented to person, place, and time. ASSESSMENT/PLAN: 1. Wellness examination - ICD9: V70.0, ICD10: Z00.00 (primary diagnosis) - Counseled on healthy diet and regular exercise - ECG COMPLETE 2. SENTHIL (generalized anxiety disorder) - ICD9: 300.02, ICD10: F41.1 - CITALOPRAM 10 MG TABLET - DEPRESSION SCREENING/ASSESSMENT 3. Screening for colon cancer - ICD9: V76.51, ICD10: Z12.11 - COLOGUARD 4. Screening for HIV (human immunodeficiency virus) - ICD9: V73.89, ICD10: Z11.4 - HIV 1 2 COMBO(AG/AB),WITH REFLEX TO DIFFERENTIATION 5. Special screening examination for viral disease - ICD9: V73.99, ICD10: Z11.59 - HEP C AB IA W/CONF SCRN Ben Pruett MD documented in this encounter [facility] 09-08-2022 Miscellaneous Notes Patient states pharmacy did not receive refill. Marlin Cardnoa MA documented in this encounter [facility] 08-29-2022 Miscellaneous Notes Patient advised he is past due for appointment and 30 day supply will be given. Marlin Cardona MA documented in this encounter [facility] 07-27-2022 Instructions Vel Carmichael APRN.[employer] - 07/27/2022 12:20 PM EST Images from the original note were not included. Adult Sinusitis Patient Education What is Sinusitis? Sinusitis [[id number]] is inflammation of the sinuses or swelling of the lining of the sinus cavity or nose. During an infection the sinuses become blocked with fluid causing swelling of the lining of the sinuses. Symptoms: (viral and bacterial infections) Stuffy nose Runny nose Postnasal drip Fever Toothache Headache Tiredness Cough Sore throat Face and head pressure and or pain Common causes: 98% of sinus infections are viral caused by viruses. Risk Factors of Sinusitis Include: Allergies, air pollution, indoor humidity and outdoor temperature changes, andstructural changes in the nose may contribute to sinus pain, pressure and congestion. When to get help? Temperature greater than 100.4 F Symptoms lasting more than 10 days or worsening symptoms greater than 7-10 days. If you do not improve or worsen after a course of antibiotics, you should be re-examined. Diagnosis and Treatment: Your healthcare provider will ask a number of questions about your symptoms and how long they have occurred. If symptoms of sinusitis persist greater than 10 days, it is possible you have a bacterial sinus infection and an antibiotic is prescribed. If it is viral, antibiotics will not help. You may be instructed to take [id number] medications for symptoms. including fever reducers acetaminophen or ibuprofen, nasal saline spray, cough and cold preparations and decongestants as prescribed by the physician, nurse practitioner or physician administrative support assistant. Self-Care and Prevention: Rest Fluids for hydration Good hand washing Humidifier Avoid smoking and exposure to second hand smoke Avoid sick contacts documented in this encounter [facility] 07-27-2022 History of Present illness Narrative Telemedicine Visit - Distance Health Virtual Visit Note Patient seen on [employer] platform. Location of patient: [place] History of Present Illness Amanda Willams is a 62 year old year old male who presents for the past 2 weeks with symptoms that are:gradually worsening. Symptoms include: Positive for nasal congestion, sinus pain and pressure, left eye watering, left upper teeth pain, intermittent rhinorrhea and PND, intermittent left ear pressure Negative for Fever, Chills/Sweats, Cough, Sore throat, and Fatigue Oral intake: Adequate Tobacco use: No Second hand smoke exposure: No Recent exposure to strep:No Sick contacts: None Recent travel: None OTC meds/remedies that patient has tried: NyQuil, DayQuil, ibuprofen PAST MEDICAL HISTORY Diagnosis Date Former smoker HEMATOMA ELBOW 08/13/2008 Myopia Obesity, Class I, BMI 30-34.9 04/18/2019 PAST SURGICAL HISTORY Procedure Laterality Date REFRACTIVE LENS EXCHANGE Bilateral 07/22/2019 VASECTOMY FAMILY HISTORY Problem Relation Age of Onset No Ocular Disease Father Hyperlipidemia Father Hyperlipidemia Mother Glaucoma Mother Cataract Mother Hyperlipidemia Sister Stroke Maternal Grandmother late 70's/early 80's Heart Attack Maternal Grandfather late 80's Emphysema Paternal Grandfather Hyperlipidemia Sister Social History Tobacco Use Smoking status: Former Packs/day: 1.00 Years: 25.00 Pack years: 25.00 Types: Cigarettes Quit date: 06/29/2005 Years since quittin.0 Smokeless tobacco: Never Vaping Use Vaping Use: Never used Substance Use Topics Alcohol use: Yes Comment: SOCIALLY Drug use: Not Currently Current Outpatient Medications Medication Sig citalopram hydrobromide (CELEXA) 10 mg tablet Take 1 tablet by mouth once daily. prednisoLONE acetate (PRED FORTE) 1 % ophthalmic suspension One drop 4 times a day in surgical eye. nepafenac ophthalmic (NEVANAC) 0.1 % ophthalmic suspension One drop 3 times a day in surgical eye. No current facility-administered medications for this visit. ALLERGIES No Known Allergies Video Exam (Examination performed via Video enabled technology) General appearance: Alert, oriented, pleasant, in NAD :Yes Ill appearing :No Lethargic appearing :No Eyes: Sclera clear :Yes Conjunctiva without erythema :Yes Ears: Tragus / outer ear tenderness by self palpation : Yes - increased pressure to left ear with manipulation Oropharynx: normal, no erythema Frontal sinus tenderness by self palpation;No Maxillary sinus tenderness by self palpation :Yes - mostly left sided Tender cervical adenopathy by self palpation :Yes Respiratory distress :No Coughing noted :No Audible wheezing noted :No ASSESSMENT/PLAN: 1. Acute non-recurrent maxillary sinusitis - ICD9: 461.0, ICD10: J01.00 - AMOXICILLIN 875 MG-POTASSIUM CLAVULANATE 125 MG TABLET - Will begin treatment with as per antibiotic as written, see orders - Use a cool mist humidifier while sleeping/laying down - Steam showers to help with cough and congestion (steam up bathroom and sit in there for 15-20 minutes at a time) - Saline nose spray - Tylenol/ibuprofen PRN pain, fever - Mucinex (generic is fine) 1200 mg twice daily to help with cough and to thin out mucus - Sudafed (generic is fine), behind the counter, 2x30 mg tabs twice daily as needed for congestion - http://www.choosingwisely.org/pat ient-resources/antibiotics/. This link shares information about when antibiotics may help and when they may not. - Red flags discussed for need for in person care - All questions answered Vel Carmichael APRN.CNP If you let us know who your primary care provider is, we will send them a notification of today s visit through our electronic medical records system. Since not all providers have access to our notifications, we strongly encourage you to share the following record of today s visit with your primary care provider at your next visit. This will help in providing you the best care. If you do not have an established Primary Care physician and would like to continue care with a [facility] Virtual Primary Care physician, please ask your provider to place a Establish Primary Care order. Use [employer] to manage your care, wherever you are, 13/02, on your mobile device or computer. [employer] connects you to [employer] so you can access all your health information in one place and also schedule and request virtual appointments with primary care providers. documented in this encounter [facility] 02-10-2022 Miscellaneous Notes Patient had in family and is unable to come in for appointment. Requesting refill to [facility] Marlin Cardona MA documented in this encounter [facility] 08-13-2008 History of Past i llness Narrative Problem Noted Date Resolved Date HEMATOMA ELBOW 08/13/2008 04/18/2019 documented as of this encounter (statuses as of 02/10/2022) [facility] History of Past illness Narrative* Problem Noted Date Resolved Date HEMATOMA ELBOW 08/13/2008 04/18/2019 documented as of this encounter (statuses as of 07/29/2022) [facility] History of Past illness Narrative* Problem Noted Date Resolved Date HEMATOMA ELBOW 08/13/2008 04/18/2019 documented as of this encounter (statuses as of 08/30/2022) [facility] History of Past illness Narrative* Problem Noted Date Resolved Date HEMATOMA ELBOW 08/13/2008 04/18/2019 documented as of this encounter (statuses as of 09/08/2022) [facility] History of Past illness Narrative* Problem Noted Date Resolved Date HEMATOMA ELBOW 08/13/2008 04/18/2019 documented as of this encounter (statuses as of 09/30/2022) [facility] History of Past illness Narrative* Problem Noted Date Diagnosed Date Resolved Date HEMATOMA ELBOW 08/13/2008 04/18/2019 documented as of this encounter (statuses as of 04/07/2023) [facility] History of Past illness Narrative* Problem Noted Date Diagnosed Date Resolved Date HEMATOMA ELBOW 08/13/2008 04/18/2019 documented as of this encounter (statuses as of 11/01/2023) [facility] note* Diagnosis SENTHIL (generalized anxiety disorder) Generalized anxiety disorder documented in this encounter [facility] note* Diagnosis Acute non-recurrent maxillary sinusitis- Primary documented in this encounter [facility] note* Diagnosis SENTHIL (generalized anxiety disorder) Generalized anxiety disorder documented in this encounter [facility] note* Diagnosis Wellness examination- Primary SENTHIL (generalized anxiety disorder) Generalized anxiety disorder Screening for colon cancer Special screening for malignant neoplasms, colon Screening for HIV (human immunodeficiency virus) Special screening examination for other specified viral diseases Special screening examination for viral disease Special screening examination for unspecified viral disease documented in this encounter [facility] note* Diagnosis SENTHIL (generalized anxiety disorder) Generalized anxiety disorder documented in this encounter [facility] note* Diagnosis Bright red blood per rectum- Primary Hemorrhage of rectum and anus [facility] Diagnosis SENTHIL (generalized anxiety disorder) Generalized anxiety disorder documented in this encounter [facility] note* Diagnosis SENTHIL (generalized anxiety disorder) Generalized anxiety disorder documented in this encounter [facility] note* Diagnosis SENTHIL (generalized anxiety disorder)- Primary Generalized anxiety disorder Healthcare maintenance Routine general medical examination at a health care facility Prostate cancer screening Special screening for malignant neoplasm of prostate documented in this encounter [facility] note* Diagnosis Acute right-sided low back pain, unspecified whether sciatica present- Primary Acute pain of right knee documented in this encounter [facility] for referral (narrative)* Outpatient Procedure (Routine) - Closed Specialty Diagnoses / Procedures Referred By Contac t Referred To [facility] Diagnoses Wellness examination Procedures ECG COMPLETE ECG ROUTINE ECG W/LEAST 12 LDS W/I&R Ben Pruett MD [address] [place] [address] [facility] [place] [address] Referral ID Status Reason Start Date Expiration Date V isits Requested Visits Authorized [id number] Closed Auto-Generate d Referral 09/29/2022 09/29/2023 1 1 [facility] Summary Purpose Family History No Family History Records FoundNo Family History Records FoundNo Family History Records Found Advance Directives No Advanced Directives Records FoundDocuments on File Type Date 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 Advance Directive(s) 07/02/2019 11:55 AM Additional Source Comments (unrecognized sect ion and content) No Status Records FoundNo Status Records FoundNo Status Records Found INFORMATION SOURCE (unrecogn ized section and content) DATE CREATED AUTHOR 09/09/2021 [facility] DATE CREATED AUTHOR AUTHOR'S ORGANIZ ATION 10/05/2022 [facility] DATE CREATED AUTHOR AUTHOR'S ORGANIZ ATION 11/28/2024 [facility] Source Comments (unrecognize d section and content) In the event this informatio n is protected by the Federal Confidentiality of Alcohol and Drug Abuse Patient Records regulations: The Federal rules restrict any use of the information to criminally investigate or prosecute any alcohol or drug abuse patient.[facility] the event this information is protected by the Federal Confidentiality of Alcohol and Drug Abuse Patient Records regulations: The Federal rules restrict any use of the information to criminally investigate or prosecute any alcohol or drug abuse patient.[facility] the event this information is protected by the Federal Confidentiality of Alcohol and Drug Abuse Patient Records regulations: The Federal rules restrict any use of the information to criminally investigate or prosecute any alcohol or drug abuse patient.[facility] the event this information is protected by the Federal Confidentiality of Alcohol and Drug Abuse Patient Records regulations: The Federal rules restrict any use of the information to criminally investigate or prosecute any alcohol or drug abuse patient.[facility] the event this information is protected by the Federal Confidentiality of Alcohol and Drug Abuse Patient Records regulations: The Federal rules restrict any use of the information to criminally investigate or prosecute any alcohol or drug abuse patient.[facility] the event this information is protected by the Federal Confidentiality of Alcohol and Drug Abuse Patient Records regulations: The Federal rules restrict any use of the information to criminally investigate or prosecute any alcohol or drug abuse patient.[facility] the event this information is protected by the Federal Confidentiality of Alcohol and Drug Abuse Patient Records regulations: The Federal rules restrict any use of the information to criminally investigate or prosecute any alcohol or drug abuse patient.[facility] the event this information is protected by the Federal Confidentiality of Alcohol and Drug Abuse Patient Records regulations: The Federal rules restrict any use of the information to criminally investigate or prosecute any alcohol or drug abuse patient.[facility] the event this information is protected by the Federal Confidentiality of Alcohol and Drug Abuse Patient Records regulations: The Federal rules restrict any use of the information to criminally investigate or prosecute any alcohol or drug abuse patient.[facility] the event this information is protected by the Federal Confidentiality of Alcohol and Drug Abuse Patient Records regulations: The Federal rules restrict any use of the information to criminally investigate or prosecute any alcohol or drug abuse patient.[facility] the event this information is protected by the Federal Confidentiality of Alcohol and Drug Abuse Patient Records regulations: The Federal rules restrict any use of the information to criminally investigate or prosecute any alcohol or drug abuse patient.[facility] the event this information is protected by the Federal Confidentiality of Alcohol and Drug Abuse Patient Records regulations: The Federal rules restrict any use of the information to criminally investigate or prosecute any alcohol or drug abuse patient.[facility] Reason for Visit (unrecogniz ed section and content) Reason Onset Date Comments Refill Request 02/10/2022 Reason Comments Sinus Problem Reason Onset Date Comments Refill Request 08/29/2022 Reason Onset Date Comments Refill Request 09/08/2022 Reason Comments Physical Left eye blurriness x3 weeks goes away with artificial tears Reason Comments Refill Request Reason Comments Rectal Problem Blood in stool, x st arted yesterday. Has some cramping sometimes he believes could be in his lower abdomen, pain scale 2. Reason Onset Date Comments Refill Request 09/09/2024 Reason Comments Appointment Reason Comments Physical Reason Comments Back Pain He has never had a s ciatic attack to the knee. He gets a jolt that is like a muscle The issues are getting worse. Care Teams (unrecognized sec tion and content) Solar Applications Development Engineer Relationship Specialty Start Date End Date Ben Pruett MD [address] [place] [address] PCP - General Internal Medicine 04/08/19 [employer] Development Engineer Relationship Specialty Start Date End Date Ben Pruett MD [address] [place] [address] PCP - General Internal Medicine 04/08/19 [employer] Development Engineer Relationship Specialty Start Date End Date Ben Pruett MD [address] [place] [address] PCP - General Internal Medicine 04/08/19 [employer] Development Engineer Relationship Specialty Start Date End Date Ben Pruett MD [address] [place] [address] PCP - General Internal Medicine 04/08/19 [employer] Development Engineer Relationship Specialty Start Date End Date Ben Pruett MD [address] [place] [address] PCP - General Internal Medicine 04/08/19 [employer] Development Engineer Relationship Specialty Start Date End Date Ben Pruett MD [address] [place] [address] PCP - General Internal Medicine 04/08/19 [employer] Development Engineer Relationship Specialty Start Date End Date Ben Pruett MD [address] [place] [address] PCP - General Internal Medicine 04/08/19 [employer] Development Engineer Relationship Specialty Start Date End Date Ben Pruett MD [address] [place] [address] PCP - General Internal Medicine 04/08/19 Jazmyn Clark APRN.CNP [address] [place] [address] Perforator Loader Family Medicine 07/01/24 Yoli Gonzalez PA-C [address] [place] [address] [facility] Internal Medicine 07/26/24 Solar [employer] Development Engineer Relationship Specialty Start Date End Date Ben Pruett MD [address] [place] [address] PCP - General Internal Medicine 04/08/19 Jazmyn Clark APRN.ELECTRICIAN SUPERVISOR AIRPLANE [address] [place] [address] [facility] 07/01/24 Yoli Gonzalez PA-C [address] [place] [address] [facility] Internal Medicine 07/26/24 [employer] Development Engineer Relationship Specialty Start Date End Date Ben Pruett MD [address] [place] [address] PCP - General Internal Medicine 04/08/19 Jazmyn Clark ADMINISTRATIVE PROGRAM SPECIALIST.ELECTRICIAN SUPERVISOR [employer] [address] [place] [address] [facility] 07/01/24 Yoli Gonzalez PA-C [address] [place] [address] [facility] Internal Medicine 07/26/24 [employer] Development Engineer Relationship Specialty Start Date End Date Ben Pruett MD [address] [place] [address] PCP - General Internal Medicine 04/08/19 Jazmyn Clark APRN.[facility] [address] [place] [address] Perforator Loader [facility] 07/01/24 FOR RECORDS PERTAINING TO PATIENTS WHO ARE OR HAVE BEEN ENROLLED IN A CHEMICAL DEPENDENCY/SUBSTANCEABUSE PROGRAM, SOME INFORMATION MAY BE OMITTED. This clinical summary was aggregated from multiple sources. Caution should be exercised in using it in the provision of clinical care. This summary normalizes information from multiple sources, and as a consequence, information in this document may materially change the coding, format and clinical context of patient data. In addition, data may be omitted in some cases. CLINICAL DECISIONS SHOULD BE BASED ON THE PRIMARY CLINICAL RECORDS. [employer] [facility]. provides no warranty or guarantee of the accuracy or completeness of information in this document.
[2025-03-24 16:51] LABS: Anion Gap 14 (5-15); BUN 17 mg/dL (4-19); BUN/Creat Ratio 11.7 RATIO (10-20); Calcium,Total 10.3 mg/dL (7.6-11.0); Carbon Dioxide 21.5 mmol/L (21.0-32.0); Chloride 103 mmol/L (98-108); Estimated Creatinine Clearance 67.45 ml/min (50-250); Glucose 108 mg/dL (70-99); Potassium 4.1 mmol/L (3.3-5.1); Troponin T High Sensitivity 11 ng/L (<=22)
[2025-03-24 16:53] VITALS: BP 133/87; PULSE 63; RESP 17; O2SAT 94
[2025-03-24 17:00] VITALS: PULSE 70; RESP 17; O2SAT 95
[2025-03-24 18:00] VITALS: BP 123/84; PULSE 74; RESP 17; O2SAT 100
[2025-03-24 18:15] VITALS: BP 123/84; PULSE 86; RESP 22; TEMP 35.8; O2SAT 99
== END 2025-03-24 18:16 | disposition home or self-care (01) ==
PROVIDERS: Emergency Provider Emergency Medicine; Visit Provider Emergency Medicine
DX: R07.89 Other chest pain (principal); R00.2 Palpitations; Z87.891 Personal history of nicotine dependence
CPT/HCPCS: 71046; 80048; 84443; 84484; 85025; 93005; 99285